=== PATIENT | female | born 1945 | race Caucasian/White ===

== ENCOUNTER 2019-09-27 14:41 | Emergency (ER) | payer MEDICARE, BC, SELFPAY ==
[2019-09-27] VITALS (8 sets, daily range): BP systolic 128–153; BP diastolic 81–99; PULSE 73–82; RESP 12–18; TEMP 35.9–36.2; O2SAT 97–100
--- NOTE | ~2019-09-27 | XR_ITS ---
EXAMINATION: XR chest 2V DATE: 09/27/2019 15:31 INDICATION: Weakness TECHNIQUE: PA and lateral views of the chest are obtained. COMPARISON: 01/22/2015 FINDINGS: The lungs are free of acute opacities. There is no pleural effusion or pneumothorax. The ca rdiomediastinal silhouette is normal. There is mild thoracic spondylosis. Surgical clips in the right upper quadrant are likely from prior cholecystectomy. IMPRESSION: 1. No acute cardiopulmonary abnormality. Reviewed, dictated and finalized at location A.
--- NOTE | ~2019-09-27 | CT_ITS ---
EXAMINATION: CTA chest PE abdomen pel DATE: 09/27/2019 19:24 INDICATION: Elevated d-dimer, weakness, abdominal pain TECHNIQUE: Computed tomography angiography (CTA) of the chest was performed with 100 mL Omnipaque-350 intravenous contrast timed to evaluate the pulmonary arteries. Subsequent postcontrast images of the abdomen and pelvis are obtained. Coronal maximum intensity projection 3D-reconstructions were create d by the technologist. The dose-length product (DLP) was 1420.75 mGy-cm. Automated exposure control a nd iterative reconstruction technique were employed. COMPARISON: None. FINDINGS: CTA CHEST: The pulmonary arteries are well-opacified. No pulmonary embolism is identified. There is c hronic elevation of the right hemidiaphragm. The lungs are free of acute opacities. There is no pleur al effusion or pneumothorax. No pathologically enlarged thoracic lymph nodes are identified. The hear t size is normal. Subendocardial fat deposition in the left ventricular apex is consistent with prior myocardial infarction. ABDOMEN/PELVIS CT: The gallbladder is surgically absent. There is mild enlargement of the common bile duct and central intrahepatic ducts which is likely due to post cholecystectomy state. The liver is diffusely low in attenuation when compared with the spleen, consistent with hepatic steatosis. The sp ash, pancreas, and adrenal glands are normal. Cysts of the right kidney measure up to 8 mm. There is a 5 mm hyperdense lesion of the left kidney (image 89). There is calcified atherosclerosis of the ao rta and many of the other arteries. No pathologically enlarged abdominal or pelvic lymph nodes are id entified. There is no free intraperitoneal gas or evidence of bowel obstruction. A moderate volume of colonic stool is present. There is moderate lumbar spondylosis at L4-5. A tiny fat-containing umbili toshia hernia is present. There is an 8 mm focus of hyperenhancement to the right of midline of unclear location possibly abutting the urethra (image 198). IMPRESSION: 1. No pulmonary embolism or acute cardiopulmonary abnormality. 2. No CT correlate for abdominal pain. 3. Indeterminate 5 mm right kidney mass, possibly hemorrhagic cyst. Recommend follow-up CT or MRI wit hout and with contrast in six months. 4. Tiny focus of hyperenhancement deep in the pelvis to the right midline of unclear origin, possibly involving the urethra. Nonemergent urologic follow-up is recommended. Reviewed, dictated and finalized at location A. IMPRESSION: 1. No pulmonary embolism or acute cardiopulmonary abnormality. 2. No CT correlate for abdominal pain. 3. Indeterminate 5 mm right kidney mass, possibly hemorrhagic cyst. Recommend f ollow-up CT or MRI without and with contrast in six months. 4. Tiny focus of hyperenhancement deep in the pelvis to the right midline of un clear origin, possibly involving the urethra. Nonemergent urologic follow-up is recommended.
--- NOTE | 2019-09-27 14:49 | ECG_ITS ---
Measurements Intervals [place] Rate: 80 P: 45 HI: 174 QRS: -11 QRSD: 104 T: 57 QT: 389 QTc: 451 Interpretive Statements SINUS RHYTHM LOW QRS VOLTAGE IN PRECORDIAL LEADS INCOMPLETE RIGHT BUNDLE BRANCH BLOCK BORDERLINE T WAVE ABNORMALITY- HIGH LATERAL LEADS BASELINE ARTIFACT- I, II, III, AVR, AVL, AVF BORDERLINE ECG Electronically Signed On 09-27-2019 16:53:01 CDT by Dipesh العراقي D.O.
[2019-09-27 15:01] LABS: Basophils Absolute Auto 0.1 K/mm3 (0.0-0.1); Basophils Percent Auto 0.5 % (0.2-1.2); Eosinophils Absolute Auto 0.2 K/mm3 (0-0.3); Eosinophils Percent Auto 1.6 % (0-4.4); Hematocrit 45.8 % (37.0-47.0); Hemoglobin 15.1 g/dL (12.0-15.0); Immature Granulocyte Absolute 0.05 K/mm3 (0.00-0.031); Immature Granulocyte Percent A 0.5 % (0-0.5); Lymphocytes Absolute Auto 2.27 K/mm3 (0.9-3.2); Lymphocytes Percent Auto 20.8 % (18.3-44.2); Mean Corpuscular Hemoglobin 29.8 pg (26-34); Mean Corpuscular Volume 90.5 fl (80-100); Mean Platelet Volume 10.9 fl (7.4-10.4); Monocytes Absolute Auto 0.6 K/mm3 (0.1-0.6); Monocytes Percent Auto 5.1 % (2.6-8.5); Neutrophils Absolute Auto 7.8 K/mm3 (1.3-6.7); Neutrophils Percent Auto 71.5 % (45.5-73.1); Platelet Count Result 276 k/mm3 (150-375); Red Blood Count 5.06 M/mm3 (4.2-5.4); Red Cell Distribution Width 13.5 % (11.5-14.5); White Blood Count 10.9 K/mm3 (4.5-10.0)
[2019-09-27 15:14] LABS: Alanine Aminotransferase 24 U/L (4-35); Albumin Level 4.5 g/dL (3.5-5.1); Alkaline Phosphatase 98 U/L (38-126); Aspartate Amino Transferase 27 U/L (14-36); Bilirubin,Total 0.9 mg/dL (0.2-1.3); Blood Urea Nitrogen 21 mg/dL (7-17); Calcium 9.8 mg/dL (8.4-10.2); Carbon Dioxide 23 mmol/L (22-30); Chloride 103 mmol/L (98-107); Estimated CRCL calculation 41 ml/min; Estimated Glomerular Filt Rate 40; Glucose 311 mg/dL (65-105); Potassium 4.3 mmol/L (3.4-5.0); Sodium 135 mmol/L (137-145)
[2019-09-27 15:21] LABS: Add Urine Microscopic? YES; Appearance Urine Cloudy (Clear); Bacteria Urine Trace /hpf; Bilirubin Urine Negative (Negative); Blood Urine Negative (Negative); Color Urine Yellow (Yellow); Glucose Urine UA 2+ mg/dL (Negative); Ketones Urine Negative (Negative); Leukocyte Esterase Ur 3+ LEU/UL (Negative); Mucus Urine Rare /lpf; Nitrate Urine Negative (Negative); Protein Urine 1+ mg/dL (Negative); Specific Grav Ur 1.029 (1.001-1.035); Squamous Epithelial Cell Urine Many /hpf (Few); WBC Urine 21-30 /hpf
--- NOTE | 2019-09-27 17:15 | ED.WEAKNESS ---
HPI - Weakness General Chief complaint: Weakness Stated complaint: PCP requests heart check, Weakness Time Seen by Provider: 09/27/19 16:48 Source: patient Mode of arrival: ambulatory Limitations: no limitations History of Present Illness HPI Narrative: This patient is a 74 year old female who presents for evaluation of episode of weakness . She states this morning while she was in shower she had an episode in which she felt like she was going to pass out. She states she has felt wobbly since then although she able to walk without assistance. She denies chest pain, palpitations, sob, nausea, vomiting or abdominal pain during the episode. She denies focal weakness or numbness. She states she had an appointment with a neurologist regarding her migraines and they told her to come to ER to get heart check out. She states she is not sure why they were worried about heart because she had no symptoms related to heart. She states he did not see any neurologist abnormalities either. Related Data Home Medications Medication Instructions Recorded Confirmed bisoprolol-hydrochlorothiazide tablet 09/27/19 cyanocobalamin (vitamin B-12) 09/27/19 divalproex PO 09/27/19 ergocalciferol (vitamin D2) 09/27/19 glimepiride mg 09/27/19 insulin syringe-needle U-100 [BD 09/27/19 09/27/19 Insulin Syringe] semaglutide [Ozempic] mg SUBCUT 09/27/19 Allergies Allergy/AdvReac Type Severity Reaction Status Date / Time Sulfa (Sulfonamide Allergy Unknown Hives / Verified 09/27/19 16:45 Antibiotics) Red Face Review of Systems Review of Systems: All systems reviewed & are unremarkable except as noted in HPI and below Constitutional: Constitutional: Denies chills, Denies fever(s) and Reports weakness Eyes: Eyes: Reports no additional eye complaints ENT: Denies sore throat Cardiovascular: Cardiovascular: Denies chest pain, Denies rapid heart rate, Denies radiating jaw, neck or arm pain and Denies slow heart rate Respiratory: Respiratory: Denies cough, Reports dyspnea and Denies wheezing Gastrointestinal: Gastrointestinal: Denies abdominal pain, Denies diarrhea, Denies nausea and Denies vomiting Genitourinary: Genitourinary: Reports dysuria Neurologic: Denies syncope, Reports headache(s) (history of migraine), Denies focal weakness and Denies numbness PMFSH Past Medical History Medical History (Updated 09/27/19 @ 20:06 by Lorena Lee MD) Diabetes mellitus Hypertension Surgical History Surgical History (Updated 09/27/19 @ 17:16 by Lorena Lee MD) Hx of cholecystectomy Social History Social History (Updated 09/27/19 @ 17:17 by Lorena Lee MD) Smoking status: Never smoker Alcohol intake: never Substance use: never Exam Narrative: Exam Narrative: GENERAL: Well-appearing, well-nourished, and in no acute distress. HEAD: Normocephalic, atraumatic EYES: PERRLA and EOMI, conjunctiva clear without discharge EARS: TM's clear bilaterally without erythema or dullness NOSE: Nares clear, no rhinorrhea or epistaxis THROAT:Mucous membranes moist, Oropharynx normal without erythema, exudate, peritonsillar swelling or fluctuance NECK: Supple, without lymphadenopathy or mass RESPIRATORY: No respiratory distress, Airway patent, Respirations non-labored, Clear to auscultation without rales, rhonchi or wheeze HEART: Regular rate and rhythm. No murmur heard. Normal peripheral pulses. ABDOMEN: Soft, RLQ, nondistended, normal active bowel sounds. No masses. No rebound or guarding, No organomegaly. EXTREMITIES: No edema, normal strength with full range of motion. SKIN: Warm, dry, normal color without rash NEURO: Alert and oriented x3. CN 2-12 grossly intact. No focal deficits. PSYCH: Normal mood and affect. Course Reevaluation(s) Reevaluation #1: PAtient states she feels better. I discussed CT and she will need to follow up with PCP. She understands she will be treated for UTI. Date:
[2019-09-27 17:25] LABS: Prothrombin Time 12.5 Seconds (11.1-14.7)
[2019-09-27 17:28] LABS: D Dimer 0.72 ug/mL (<0.48)
[2019-09-27 17:43] LABS: Troponin I < 0.012 ng/mL (0.000-0.034)
[2019-09-27] MEDS: IBUPROFEN 600 MG TABLET PO (20:02)
== END 2019-09-27 20:15 | disposition home or self-care (01) ==
PROVIDERS: Emergency Medicine; Emergency Provider General Practice; PCP Internal Medicine
DX: R55 Syncope and collapse (principal); N39.0 Urinary tract infection, site not specified; I45.10 Unspecified right bundle-branch block; E11.9 Type 2 diabetes mellitus without complications; I10 Essential (primary) hypertension; Z79.4 Long term (current) use of insulin
CPT/HCPCS: 36415; 71046; 71275; 74177; 80053; 81001; 84484; 85025; 85380; 85610; 87086; 93005; 99284; A9270; Q9967

== ENCOUNTER 2019-10-07 07:36 | Outpatient (CLI) | payer MEDICARE, BC, SELFPAY ==
--- NOTE | ~2019-10-07 | XR_ITS ---
EXAMINATION: XR knee LT 2V DATE: 10/07/2019 08:06 INDICATION: Multiple joint pain. TECHNIQUE: 2 views of left knee were obtained. COMPARISON: Left knee radiographs 12/23/2004 FINDINGS: Bone alignment is normal. No fracture. There is mild tricompartmental osteoarthritis. No kn ee joint effusion. IMPRESSION: 1. Mild left knee osteoarthritis. Reviewed, dictated and finalized at location A.
--- NOTE | ~2019-10-07 | MR_ITS ---
EXAMINATION: MR brain/brain stem wo con DATE: 10/07/2019 10:33 INDICATION: Headache. TECHNIQUE: Magnetic resonance imaging (MRI) of the brain and brainstem was performed without intraven ous contrast. Sequences included sagittal and axial T1-weighted FSE, axial diffusion-weighted FS EPI, axial T2*-weighted GRE, axial T2-weighted FLAIR Propeller, and axial T2-weighted Propeller. Apparent diffusion coefficient (ADC) maps were created. COMPARISON: None. FINDINGS: There are scattered areas of nonspecific increased T2-weighted signal intensity in the cere bral white matter, which is within normal limits for the patient's age. There is no intracranial hemo rrhage, acute infarction, or abnormal intracranial mass lesion. The ventricles are normal in size. Th e paranasal sinuses are clear. The orbits are normal. The mastoid air cells are normal. IMPRESSION: 1. Normal brain. Reviewed, dictated and finalized at location A. IMPRESSION: 1. Normal brain.
--- NOTE | ~2019-10-07 | MR_ITS ---
EXAMINATION: MRA brain wo con DATE: 10/07/2019 10:32 INDICATION: Headache. TECHNIQUE: Magnetic resonance angiography (MRA) of the brain was performed without intravenous contra st with T1-weighted SPGR by the 3D [id number] technique. Maximum intensity projection 3D-reconstr uctions were obtained. COMPARISON: None. FINDINGS: The vertebral arteries are codominant. There is no significant stenosis of basilar artery or the post erior cerebral arteries. There is no significant stenosis of the intracranial internal carotid arteri es or anterior or middle cerebral arteries. Anterior communicating artery is normal. The posterior co mmunicating arteries are normal. There is no aneurysm. IMPRESSION: 1. Normal head MRA. Reviewed, dictated and finalized at location A. IMPRESSION: 1. Normal head MRA.
--- NOTE | ~2019-10-07 | XR_ITS ---
EXAMINATION: XR hip LT min 2V DATE: 10/07/2019 08:06 INDICATION: Multiple joint pain. TECHNIQUE: 2 views of left hip were obtained. COMPARISON: Left hip radiographs 10/23/2005 FINDINGS: Bone alignment is normal. No fracture. There is mild left hip osteoarthritis. IMPRESSION: 1. Mild left hip osteoarthritis. Reviewed, dictated and finalized at location A.
--- NOTE | ~2019-10-07 | XR_ITS ---
EXAMINATION: XR knee RT 2V DATE: 10/07/2019 08:06 INDICATION: Multiple joint pain. TECHNIQUE: 2 views of right knee were obtained. COMPARISON: Right knee radiographs 01/22/2005 FINDINGS: Bone alignment is normal. No fracture. There is mild osteoarthritis of medial compartment a nd moderate osteoarthritis of lateral and patellofemoral compartments. There is chondrocalcinosis inv olving lateral meniscus. No knee joint effusion. IMPRESSION: 1. Moderate right knee osteoarthritis. Reviewed, dictated and finalized at location A.
--- NOTE | ~2019-10-07 | XR_ITS ---
EXAMINATION: XR hip RT min 2V DATE: 10/07/2019 08:06 INDICATION: Multiple joint pain. TECHNIQUE: 2 views of right hip were obtained. COMPARISON: Right hip radiographs 10/23/2005 FINDINGS: Bone alignment is normal. No fracture. There is mild right hip osteoarthritis. IMPRESSION: 1. Mild right hip osteoarthritis. Reviewed, dictated and finalized at location A.
--- NOTE | ~2019-10-07 | MR_ITS ---
EXAMINATION: MR cervical spine wo con DATE: 10/07/2019 10:32 INDICATION: Neck pain. TECHNIQUE: Magnetic resonance imaging (MRI) of the cervical spine was performed without intravenous c ontrast. Sequences included sagittal T2-weighted FSE, sagittal T2-weighted FS FSE, sagittal T1-weight ed FSE, axial MERGE, and axial T2-weighted FSE. COMPARISON: None FINDINGS: There is 2 mm anterolisthesis of C4 on C5, C5 on C6, and C6 on C7. Vertebral body heights a re normal. There is mildly decreased disc height at C5-C6. The spinal cord signal intensity is normal . The following disc levels are specifically discussed: C2-C3: There is a central protrusion. There is no uncovertebral joint osteoarthritis. There is severe bilateral facet joint osteoarthritis. There is mild left neural foraminal stenosis. There is no cent ral canal stenosis. C3-C4: The disc is bulging. There is mild bilateral uncovertebral joint osteoarthritis. There is sly re bilateral facet joint osteoarthritis. There is mild bilateral neural foraminal stenosis. There is mild central canal stenosis. C4-C5: The disc is bulging. There is mild left uncovertebral joint osteoarthritis. There is severe bi lateral facet joint osteoarthritis. There is mild left neural foraminal stenosis. There is mild centr al canal stenosis. C5-C6: The disc is bulging. There is mild right and moderate left uncovertebral joint osteoarthritis. There is severe bilateral facet joint osteoarthritis. There is mild bilateral neural foraminal steno sis. There is mild central canal stenosis. C6-C7: The disc is bulging. There is mild left uncovertebral joint osteoarthritis. There is severe bi lateral facet joint osteoarthritis. There is mild bilateral neural foraminal stenosis. There is mild central canal stenosis. C7-T1: There is a central protrusion. There is mild left uncovertebral joint osteoarthritis. There is severe right and moderate left facet joint osteoarthritis. There is mild bilateral neural foraminal stenosis. There is mild central canal stenosis. IMPRESSION: 1. Moderate cervical spondylosis. Reviewed, dictated and finalized at location A.
--- NOTE | ~2019-10-07 | MR_ITS ---
EXAMINATION: MR lumbar spine wo con DATE: 10/07/2019 10:32 INDICATION: Low back pain. TECHNIQUE: Magnetic resonance imaging (MRI) of the lumbar spine was performed without intravenous con trast. Sequences included sagittal T2-weighted FSE, sagittal T2-weighted FS FSE, sagittal T1-weighted FSE, and axial T2-weighted FSE. COMPARISON: None FINDINGS: There is 4 mm anterolisthesis of L4 on L5. Vertebral body heights are normal. There is mode rately decreased disc height at L4-L5. The distal spinal cord signal intensity is normal. The conus m edullaris is at L1. The following disc levels are specifically discussed: L1-L2: The disc does not extend beyond the endplate margin. There is severe right and moderate left f acet joint osteoarthritis. There is no neural foraminal stenosis. There is no central canal stenosis. L2-L3: The disc is mildly bulging. There is severe bilateral facet joint osteoarthritis. There is hyp ertrophy of the ligamentum flavum. There is mild bilateral neural foraminal stenosis. There is mild c entral canal stenosis. L3-L4: The disc is bulging. There is severe bilateral facet joint osteoarthritis. There is hypertroph y of the ligamentum flavum. There is mild bilateral neural foraminal stenosis. There is mild central canal stenosis. L4-L5: The disc is bulging and has an annular fissure. There is severe bilateral facet joint osteoart hritis. There is hypertrophy of the ligamentum flavum on the right. There is moderate bilateral neura l foraminal stenosis. There is moderate central canal stenosis. L5-S1: The disc is bulging and has an annular fissure. There is severe bilateral facet joint osteoart hritis. There is mild bilateral neural foraminal stenosis. There is mild central canal stenosis. IMPRESSION: 1. Moderate lumbar spondylosis. Reviewed, dictated and finalized at location A.
== END 2019-10-07 07:37 | disposition home or self-care (01) ==
PROVIDERS: PCP Internal Medicine; Visit Provider Internal Medicine Rheumatology
DX: R51 Headache (principal); M47.896 Other spondylosis, lumbar region; M47.892 Other spondylosis, cervical region; R55 Syncope and collapse
CPT/HCPCS: 70544; 70551; 72141; 72148; 73502; 73560

== ENCOUNTER 2020-01-20 03:47 | Outpatient (CLI) | payer MEDICARE, BC, SELFPAY ==
[2020-01-20 17:45] LABS: SARS-CoV-2 RNA PCR Negative
== END 2020-01-20 03:48 | disposition home or self-care (01) ==
LOC: ANHCOVIDDT 03:48
PROVIDERS: PCP Internal Medicine; Visit Provider Internal Medicine Critical Care Medicine
DX: Z01.812 Encounter for preprocedural laboratory examination (principal); Z20.828 Contact with and (suspected) exposure to other viral communicable diseases
CPT/HCPCS: 87635; C9803; U0003

== ENCOUNTER 2020-01-23 08:04 | Outpatient (CLI) | payer MEDICARE, BC, SELFPAY ==
--- NOTE | 2020-02-22 11:03 | WPDSLEEPSTUD ---
Sleep Study Date of Study: 01/23/20 Ordering Provider: Billy Thacker MD Interpreting Physician: Kari Dougherty MD Sleep Study Type: Polysomnogram Height: 1.63 m Weight: 97.522 kg Body Mass Index: 36.8 [place]: 17 Reason for Sleep Study Hypersomnolence Sleep History Sinai Baker is a 75 year-old female with a history of poor sleep. She is tired and fatigued every day, frequently has morning headaches and heartburn at night. She wakes several times at night to urinate. There is a family history of sleep disorders, a sister has sleep apnea. The patient had a sleep test 15 years ago. She frequently awakens at night with heartburn, belching or coughing. She does not know if she snores. She rarely awakens from sleep feeling short of breath. She frequently has trouble sleeping with a cold. She rarely wakes up gasping for breath at night. She rarely has breathing problems at night reported to her by others. She frequently sweats excessively at night. She rarely notices her heart pounding or beating irregularly at night. She frequently falls asleep during the day, frequently involuntarily but never while driving. She does not fall asleep during physical effort. She does not have loss of muscle tone with strong emotion. 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 She does not feel paralyzed on waking or falling asleep. She rarely has vivid dreamlike scenes upon awakening or falling asleep. She is never afraid to go to sleep. She rarely has nightmares and rarely remembers her dreams. She occasionally has racing thoughts. She rarely feels sad or depressed. She rarely has anxiety. She frequently has muscular tension. She does not notice part of her body jerking. She does not know if she kicks at night. She occasionally has [place] aching feelings in her legs. She occasionally has morning jaw pain she rarely grinds her teeth during sleep. She constantly is bothered by pain during the day, frequently is awakened by pain at night. She occasionally wakes up feeling stiff in the morning. She rarely wakes up with sore or achy muscles. She occasionally wakes up with pain in the neck and spine. She frequently has fatigue. SHe takes antacids regularly. Normal bedtime is 9:00 p.m., sometimes falling asleep more quickly than other times. She typically wakes at night 5 times. While awake, she will go to the bathroom, and she walks around to relieve leg cramps. She stays awake for 5 - 10 minutes. She wakes in the morning at 7:00 a.m.. She estimates 8-9 hours of sleep at night. On the weekends, she goes to bed later, between 10:11 p.m. and wakes later, between 7 and 9:00 a.m.. She sometimes takes naps. A short 15 minute nap is refreshing. She is usually drowsy in the morning for 1 hour or longer. She feels better in the evening compared to earlier in the day. Habits: Never smoked tobacco. Caffeine 2 cups a day. No alcohol. No recreational drugs. [facility] Past Medical History Medical History (Updated 02/22/20 @ 11:31 by Kari Dougherty MD) Common migraine Diabetes mellitus Gastroesophageal reflux Hypertension Polyarthralgia Restless leg syndrome Surgical History Surgical History (Updated 02/22/20 @ 11:30 by Kari Dougherty MD) History of back surgery History of hysterectomy History of knee surgery Hx of cholecystectomy Family History Family History (Updated 02/22/20 @ 11:44 by Kari Dougherty MD) Sibling Family history of sleep apnea Other FHx: migraine headaches Family history of Alzheimer's disease Heart disease Hypertension Social History Social History Smoking status: Never smoker Alcohol intake: never Substance use: never Medications Home Medications Medication Instructions Recorded Confirmed Type bisoprolol-hydrochlorothiazide tablet 09/27/19 History cephalex
[2020-02-22 11:11] VITALS: BMI 36.8
== END 2020-01-23 08:05 | disposition home or self-care (01) ==
LOC: ANHCSM 08:13
PROVIDERS: PCP Internal Medicine; Visit Provider Internal Medicine Rheumatology
DX: G47.33 Obstructive sleep apnea (adult) (pediatric) (principal)
CPT/HCPCS: 95810

== ENCOUNTER 2020-02-18 10:52 | Outpatient (CLI) | payer MEDICARE, BC, SELFPAY ==
--- NOTE | ~2020-02-18 | MR_ITS ---
EXAMINATION: MR knee RT wo con DATE: 02/18/2020 11:50 INDICATION: Right knee pain TECHNIQUE: Magnetic resonance imaging (MRI) of the right knee was performed without intravenous contr ast. Sequences included coronal PD-weighted FSE, coronal PD-weighted FS FSE, sagittal T2-weighted FS E, sagittal PD-weighted FS FSE and axial PD weighted fat saturated FSE. COMPARISON: None. FINDINGS: Medial compartment: Longitudinal horizontal tear extending to the intra-articular surface near the free edge of the poste rior horn and posterior body of the medial meniscus. There is a region of deep chondral fissuring wit hout degenerative subchondral changes at the anterior weightbearing medial femoral condyle. Partial t hickness cartilage loss with mild chondral surface regularity along the posterior weightbearing media l femoral condyle. Moderate large marginal osteophytes along the medial femoral condyle and tiny carmen inal osteophytes along the medial tibial plateau. Lateral compartment: There is lateral extrusion of the lateral meniscal body which appears thickened with prominent diffus e amorphous increased signal suggesting severe degenerative tearing. There is extensive full and near full-thickness cartilage loss involving the majority the lateral tibial plateau and weightbearing la teral femoral condyle. There is remodeling of the articular surface of the lateral tibial plateau wit h increasing concavity to the articular cortex. There is additional cortical irregularity and mild arnold bcortical edema along the anterior to central weightbearing medial femoral condyle. Large marginal os teophytes are present along both the lateral tibial plateau and lateral femoral condyle. Patellofemoral compartment: Full thickness cartilage loss with underlying cortical irregularity and a few foci of subchondral garry ma along the lateral and inferior aspects of the lateral trochlea. Lesser degree of chondral ulcerati on with deep fissuring at the medial trochlea and trochlear groove. Full/near full-thickness cartilag e loss along the medial side of the lateral patellar facet and apical ridge without degenerative subc hondral changes. Partial-thickness cartilage loss and deep fissuring at the medial facet. Moderate-si zed patellar and trochlear osteophytes are present. Ligaments and tendons: The anterior cruciate ligament appears to remain grossly intact following a normal angle relative to bone stock line. There are however a couple small intrasubstance ganglion cysts within the cephalad a spect of the ligament which could be due to internal mucoid degeneration or partial tearing. There is also thickening and increased intrasubstance signal at the posterior cruciate ligament also consiste nt with partial tear. The medial collateral ligament and fibular collateral ligament complex are norm al. Mild tendinopathy without discrete tear of the distal quadriceps and distal patellar tendons. The visualized medial and lateral hamstring tendons as well as the iliotibial band are normal. Fluid: Small right knee joint effusion. No loose osteochondral bodies identified. Osseous/other: There is mild genu valgus resulting from the lateral joint space narrowing and remodeling of the late ral tibial plateau. No fracture or pathologic marrow replacing process. IMPRESSION: 1. Medial and lateral meniscal tears. 2. 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 3. Partial tear of the posterior cruciate ligament and mucoid degeneration is additional partial tear of the anterior cruciate ligament. Correlate with physical exam to assess for degree of functional i ntegrity of the cruciate ligaments. 4. Mild tendinopathy without discrete tear at the dis
== END 2020-02-18 10:53 | disposition home or self-care (01) ==
LOC: ANHIMG 10:55
PROVIDERS: PCP Internal Medicine; Visit Provider Internal Medicine Rheumatology
DX: S83.281A Other tear of lateral meniscus, current injury, right knee, initial encounter (principal); S83.241A Other tear of medial meniscus, current injury, right knee, initial encounter; X58.XXXA Exposure to other specified factors, initial encounter; M17.11 Unilateral primary osteoarthritis, right knee
CPT/HCPCS: 73721

== ENCOUNTER 2020-12-18 13:52 | Emergency (ER) | payer MEDICARE, BC, SELFPAY ==
[2020-12-18] VITALS (9 sets, daily range): BP systolic 127–153; BP diastolic 60–90; PULSE 73–78; RESP 18; TEMP 36.1; O2SAT 97–100
--- NOTE | ~2020-12-18 | XR_ITS ---
EXAMINATION: XR chest 2V EXAM DATE: 12/18/2020 14:45 INDICATION: Neck, jaw pain. History hypertension reflux diabetes. TECHNIQUE: Frontal and lateral projections of the chest obtained and reviewed. Comparison is made to prior examination from 09/27/2019. FINDINGS: There are cholecystectomy clips. The lungs are clear. There are no pleural effusions. Th e cardiomediastinal silhouette is within normal limits. There is no pneumothorax suspected. The bon es and soft tissues are unremarkable. IMPRESSION: No acute cardiopulmonary findings. Reviewed, dictated and finalized at location B.
--- NOTE | ~2020-12-18 | CT_ITS ---
EXAMINATION: CTA BRAIN/CAROTID DATE: 12/18/2020 18:44 INDICATION: Stroke TECHNIQUE: Computed tomographic angiography (CTA) of the head and neck was performed with 100 mL Omni paque-350 intravenous contrast. Multiplanar reconstructions and maximum intensity projection 3D-recon structions of the carotid arteries and of the intracranial arteries were created by the technologist on a separate workstation. Precontrast CT of the head was also obtained. Automated exposure control and iterative reconstruction technique were employed.The dose-length product was 1667.88 mGy-cm. COMPARISON: Brain MR and MR angiogram dated 10/07/2019 FINDINGS: Carotid arteries: There is a small amount of atherosclerotic calcification with 0% stenosis of the right carotid bulb r elative to normal distal artery lumen diameter (NASCET criteria). There is no atherosclerotic plaque with 0% stenosis of the left carotid bulb relative to normal distal artery lumen diameter. Thoracic a tash and the origin of the great vessels are unremarkable aside from a minimal amount of scattered at herosclerotic plaque without significant stenosis. The bilateral cervical vertebral arteries are codo minant, mildly tortuous proximally with no stenosis. Likely benign 5 mm low-attenuation right thyroid nodule. Cervical soft tissues are otherwise unremarkable. Small pneumatocele in the left upper lobe. Head: No acute intracranial hemorrhage, acute infarction or abnormal extra axial fluid collection. Symmetri c prominence of the sulci consistent with mild age-appropriate diffuse cerebral volume loss. Ventric les are normal and symmetric. No mass/mass effect. The orbits, paranasal sinuses and mastoid air cell s are normal. Intracranial arteries Mild atherosclerotic plaque without significant stenosis at the bilateral carotid siphons. There is n o hemodynamically significant stenosis in the vertebral, basilar and internal carotid arteries. Verte bral arteries are codominant. There are no aneurysms identified. Both A1 and P1 segments are patent. There are also patent anterior communicating and bilateral posterior communicating arteries. Cerebra l arterial arborization appears symmetric. No abnormally enhancing brain lesions. IMPRESSION: 1. 0% stenosis of the right and left carotid bulbs relative to normal distal artery lumen diameter (N ASCET criteria). 2. Mild age-appropriate diffuse cerebral volume loss. No acute intracranial process. 3. Unremarkable cerebral angiogram with small amount of nonhemodynamically significant plaque at the bilateral carotid siphons. Reviewed, dictated and finalized at location A. IMPRESSION: 1. 0% stenosis of the right and left carotid bulbs relative to normal distal ar tory lumen diameter (NASCET criteria). 2. Mild age-appropriate diffuse cerebral volume loss. No acute intracranial pro cess. 3. Unremarkable cerebral angiogram with small amount of nonhemodynamically sign ificant plaque at the bilateral carotid siphons.
--- NOTE | 2020-12-18 14:10 | ECG_ITS ---
Measurements Intervals [place] Rate: 76 P: 52 DC: 169 QRS: -8 QRSD: 107 T: 27 QT: 402 QTc: 454 Interpretive Statements SINUS RHYTHM INCOMPLETE RIGHT BUNDLE BRANCH BLOCK BORDERLINE T WAVE ABNORMALITY- ANTEROLAT/INF LEADS BORDERLINE ECG Electronically Signed On 12-18-2020 14:50:50 CDT by Dipesh العراقي D.O.
--- NOTE | 2020-12-18 14:28 | PC.NURSE ---
BLOOD SENT TO LAB
[2020-12-18 14:33] LABS: Basophils Percent Auto 0.3 % (0.2-1.2); Eosinophils Absolute Auto 0.2 K/mm3 (0-0.3); Eosinophils Percent Auto 2.7 % (0-4.4); Hematocrit 37.6 % (37.0-47.0); Immature Granulocyte Absolute 0.02 K/mm3 (0.00-0.031); Immature Granulocyte Percent A 0.2 % (0-0.5); Lymphocytes Absolute Auto 3.47 K/mm3 (0.9-3.2); Lymphocytes Percent Auto 38.9 % (18.3-44.2); Mean Corpuscular HGB Conc 34.6 g/dl (32-36); Mean Corpuscular Hemoglobin 30.7 pg (26-34); Mean Corpuscular Volume 88.7 fl (80-100); Mean Platelet Volume 10.3 fl (7.4-10.4); Monocytes Absolute Auto 0.6 K/mm3 (0.1-0.6); Monocytes Percent Auto 6.7 % (2.6-8.5); Neutrophils Absolute Auto 4.6 K/mm3 (1.3-6.7); Neutrophils Percent Auto 51.2 % (45.5-73.1); Platelet Count Result 260 k/mm3 (150-375); Red Blood Count 4.24 M/mm3 (4.2-5.4); Red Cell Distribution Width 13.4 % (11.5-14.5); White Blood Count 8.9 K/mm3 (4.5-10.0)
[2020-12-18 14:42] LABS: INR 0.8; Prothrombin Time 11.4 Seconds (11.1-14.7)
[2020-12-18 14:43] LABS: Partial Thromboplastin Time 26.4 SECONDS (22.3-36.8)
[2020-12-18 14:46] LABS: Anion Gap 11 mmol/L (8-16); Blood Urea Nitrogen 15 mg/dL (7-17); Calcium 9.7 mg/dL (8.4-10.2); Carbon Dioxide 21 mmol/L (22-30); Chloride 107 mmol/L (98-107); Estimated CRCL calculation 48 ml/min; Estimated Glomerular Filt Rate 54; Glucose 143 mg/dL (65-110); Potassium 3.7 mmol/L (3.4-5.0); Sodium 139 mmol/L (137-145)
[2020-12-18 14:58] LABS: Troponin I < 0.012 ng/mL (0.000-0.034)
[2020-12-18 17:46] LABS: Troponin I < 0.012 ng/mL (0.000-0.034)
[2020-12-18] MEDS: diphenhydrAMINE HCl INJ 50 MG/ML VIAL 25 MG IV PUSH (18:02)
[2020-12-18] MEDS: METOCLOPRAMIDE HCL INJ 10 MG/2 ML VIAL IV PUSH (18:03)
[2020-12-18] MEDS: SODIUM CHLORIDE 0.9% IV 1,000 ML 999 ML IV CONT (18:03)
[2020-12-18] MEDS: KETOROLAC 15 MG/ML VIAL (*BKC) IV PUSH (18:32)
--- NOTE | 2020-12-18 19:15 | ED.GENADULT ---
HPI - General Adult General Chief complaint: Headache Stated complaint: Headache,L side of face and neck pain Time Seen by Provider: 12/18/20 17:32 History of Present Illness HPI narrative: Patient is a 75-year-old female presents the emergency department with chief complaint of headache. Patient reports that she has history of headaches but states today she felt pain going into her neck and also had some tingling the patient states that she has prior history of migraines and has some episodes of tingling but normally does not have the pain radiates down into her neck and reports that her lower extremities felt somewhat weak when this occurred Related Data Home Medications Medication Instructions Recorded Confirmed bisoprolol-hydrochlorothiazide tablet 09/27/19 cyanocobalamin (vitamin B-12) 09/27/19 divalproex PO 09/27/19 ergocalciferol (vitamin D2) 09/27/19 glimepiride mg 09/27/19 insulin syringe-needle U-100 [BD 09/27/19 09/27/19 Insulin Syringe] semaglutide [Ozempic] mg SUBCUT 09/27/19 Allergies Allergy/AdvReac Type Severity Reaction Status Date / Time Sulfa (Sulfonamide Allergy Unknown Hives / Verified 09/27/19 16:45 Antibiotics) Red Face Review of Systems Review of Systems: A 10 system review of systems was completed on the patient and is negative except for what is stated in the HPI. Nursing and ancillary documentation was reviewed. PMFSH Past Medical History Medical History Common migraine Diabetes mellitus Gastroesophageal reflux Hypertension Polyarthralgia Restless leg syndrome Surgical History Surgical History History of back surgery History of hysterectomy History of knee surgery Hx of cholecystectomy Family History Family History Sibling Family history of sleep apnea Other FHx: migraine headaches Family history of Alzheimer's disease Heart disease Hypertension Social History Social History Smoking status: Never smoker Alcohol intake: never Substance use: never Exam Narrative: GENERAL: Well-appearing, well-nourished, and in no acute distress. HEAD: Normocephalic, atraumatic. EYES: PERRLA and EOMI. ENT: Nares clear, no rhinorrhea or epistaxis. Mucous membranes moist. NECK: Supple. CHEST: Clear to auscultation. No respiratory distress. HEART: Regular rate and rhythm. No murmur heard. Normal peripheral pulses. ABDOMEN: Soft, nontender, nondistended, normal active bowel sounds. EXTREMITIES: Normal range of motion. No edema. SKIN: Warm, dry, no rash. NEURO: No focal deficits. Alert and oriented x3. PSYCH: Normal mood and affect. Course Course Emergency Course: Patient is feeling much better after a standard migraine treatment Due to the change in her pattern of headache CTA head neck was obtained which showed no evidence of acute abnormality Vital Signs Vital signs: Vital Signs Temperature 36.1 C L 12/18/20 14:05 Pulse Rate 73 12/18/20 14:05 Respiratory Rate 18 12/18/20 14:05 Blood Pressure 153/90 H 12/18/20 14:05 Pulse Oximetry 98 12/18/20 14:05 Temperature 36.1 C L 12/18/20 14:05 Pulse Rate 78 12/18/20 18:34 Respiratory Rate 18 12/18/20 18:34 Blood Pressure 138/60 12/18/20 18:34 Pulse Oximetry 99 12/18/20 18:34 Medical Decision Making Vital Signs Vital Signs: Vital Signs Temperature 36.1 C L 12/18/20 14:05 Pulse Rate 73 12/18/20 14:05 Respiratory Rate 18 12/18/20 14:05 Blood Pressure 153/90 H 12/18/20 14:05 Pulse Oximetry 98 12/18/20 14:05 Temperature 36.1 C L 12/18/20 14:05 Pulse Rate 78 12/18/20 18:34 Respiratory Rate 18 12/18/20 18:34 Blood Pressure 138/60 12/18/20 18:34 Pulse Oximetry 99 12/18/20 18:34 Lab Data Res
== END 2020-12-18 19:52 | disposition home or self-care (01) ==
PROVIDERS: Emergency Medicine; Emergency Provider Emergency Medicine; PCP Internal Medicine
DX: G43.909 Migraine, unspecified, not intractable, without status migrainosus (principal); E11.9 Type 2 diabetes mellitus without complications; Z79.4 Long term (current) use of insulin; K21.9 Gastro-esophageal reflux disease without esophagitis; I10 Essential (primary) hypertension
CPT/HCPCS: 36415; 70496; 70498; 71046; 80048; 84484; 85025; 85610; 85730; 93005; 96361; 96374; 96375; 99284; J1200; J1885; J2765; J7030; Q9967

== ENCOUNTER 2021-03-08 16:50 | Inpatient (IN) | payer MEDICARE, BC, SELFPAY ==
--- NOTE | ~2021-03-08 | XR_ITS ---
EXAMINATION: XR chest 1V portable INDICATION: Shortness of breath TECHNIQUE: Portable AP chest at 0652 hours COMPARISON: 03/09/2021 FINDINGS: Diffuse interstitial and airspace opacities persist with slight improvement. There is uncha nged elevation of the right hemidiaphragm. No pleural effusion or pneumothorax is identified. The hea rt size is normal. Surgical clips in the right upper quadrant are likely from prior cholecystectomy. IMPRESSION: 1. Diffuse lung disease with slight improvement, consistent with COVID 19 pneumonia. Reviewed, dictated and finalized at location A. EMENT COORDINATOR IMPRESSION: 1. Diffuse lung disease with slight improvement, consistent with COVID 19 pneum onia.
--- NOTE | ~2021-03-08 | US_ITS ---
EXAMINATION: US art doppler w press LE BI DATE: 03/15/2021 09:40 INDICATION: Peripheral arterial disease. TECHNIQUE: Segmental pressures and plethysmographic and Doppler waveforms of the brachial and lower e xtremity arteries were obtained. COMPARISON: CT abdomen and pelvis 03/14/2021, 09/27/2019 FINDINGS: Right and left brachial artery pressures of 135 mm Hg and 125 mm Hg, respectively, are concordant (no rmal difference <= 30 mmHg). The right lower limb pressures were not measured. The right ankle-brachial index (CATA) was not measur ed (normal >= 0.9-1.0). The right great toe-brachial index (TBI) was not measured (normal >= 0.65). A rterial Doppler waveforms are biphasic in common femoral artery and superficial femoral artery and no isy in popliteal artery. There is no detectable arterial flow in posterior tibial artery or dorsalis pedis or the great toe. The left ACTA is 0.96. The left TBI is 0.41. Arterial Doppler waveforms are biphasic from common femor al artery to the ankle. IMPRESSION: 1. No detectable arterial flow in right posterior tibial artery, dorsalis pedis, or the great toe. 2. Mildly decreased left CATA and decreased left TBI, consistent with arterial occlusive disease. Reviewed, dictated and finalized at location A. CTOR SEMICONDUCTOR IMPRESSION: 1. No detectable arterial flow in right posterior tibial artery, dorsalis pedis , or the great toe. 2. Mildly decreased left CATA and decreased left TBI, consistent with arterial o cclusive disease.
--- NOTE | ~2021-03-08 | XR_ITS ---
EXAMINATION: XR chest 1V portable INDICATION: Hypoxia TECHNIQUE: Portable AP chest at 0 to 40 hours COMPARISON: 03/13/2021 FINDINGS: Pneumomediastinum has developed since the comparison examination. There is also gas trackin g into the neck. Diffuse interstitial and airspace opacities persist without significant change. Ther e is no pleural effusion or pneumothorax. The heart size is normal. Surgical clips in the right upper quadrant are likely from prior cholecystectomy. IMPRESSION: 1. Interval development of pneumomediastinum and gas tracking into the right neck. 2. Stable diffuse lung disease, consistent with COVID 19 pneumonia. Reviewed, dictated and finalized at location A. IFFS DETECTIVE IMPRESSION: 1. Interval development of pneumomediastinum and gas tracking into the right ne ck. 2. Stable diffuse lung disease, consistent with COVID 19 pneumonia.
--- NOTE | ~2021-03-08 | XR_ITS ---
EXAMINATION: XR chest 1V portable EXAM DATE: 03/09/2021 15:52 INDICATION: Worsened hypoxemia . COVID pneumonia. TECHNIQUE: Portable AP frontal chest x-ray was obtained. Comparison is made to prior examination from 03/08/2021. FINDINGS: Moderate amount of bilateral airspace disease, with ill-defined but with more discrete line ar regions of atelectasis. Appearance is consistent with acute to subacute COVID pneumonia. No signif icant change compared to yesterday. No pneumothorax or pleural effusion. Cardiomediastinal silhouette is normal. IMPRESSION: 1. Moderate bilateral pneumonia. Reviewed, dictated and finalized at location A. O STATION OPERATOR
--- NOTE | ~2021-03-08 | XR_ITS ---
EXAMINATION: XR chest 1V portable DATE: 03/08/2021 17:11 INDICATION: Cough and shortness of breath. COVID positive. TECHNIQUE: frontal view of the chest was obtained. COMPARISON: Chest radiograph dated 12/18/2020 FINDINGS: Lung volumes are decreased. There is patchy and bandlike airspace opacities throughout both lungs rel atively sparing the upper lung zones. No pleural effusion or pneumothorax. The cardiomediastinal silh ouette is normal. Cholecystectomy clips in right upper quadrant. IMPRESSION: 1. Bilateral lung disease with appearance suspicious for COVID pneumonia. Differential includes less likely atelectasis or pulmonary edema. Reviewed, dictated and finalized at location B. PHONE TECHNICIAN IMPRESSION: 1. Bilateral lung disease with appearance suspicious for COVID pneumonia. Diffe rential includes less likely atelectasis or pulmonary edema.
--- NOTE | ~2021-03-08 | XR_ITS ---
EXAMINATION: XR chest 1V portable INDICATION: Pneumomediastinum TECHNIQUE: Portable AP chest at 0614 hours COMPARISON: 03/14/2021 FINDINGS: Pneumomediastinum persists. There has been development of extensive subcutaneous gas of the chest wall and neck. The appearance of bilateral pneumothoraces is demonstrated to reflect gas of th e chest wall tracking into the intercostal space and involving the parietal pleura. Diffuse opacities persist throughout all lung zones without significant change. The heart size is normal. IMPRESSION: 1. Diffuse lung disease, consistent with pneumonia and pulmonary edema. Reviewed, dictated and finalized at location A. K UP WORKER
--- NOTE | ~2021-03-08 | XR_ITS ---
EXAMINATION: XR ankle RT min 3V INDICATION: Right ankle swelling TECHNIQUE: Four views of the right ankle are obtained. COMPARISON: None available FINDINGS: There is no fracture, dislocation, or subluxation. Lateral ankle soft tissue swelling is no alejandra. There is a plantar calcaneal enthesophyte. IMPRESSION: 1. Lateral ankle soft tissue swelling without underlying osseous abnormality identified. Reviewed, dictated and finalized at location A. R DRAGLINE OPERATOR IMPRESSION: 1. Lateral ankle soft tissue swelling without underlying osseous abnormality id entified.
--- NOTE | ~2021-03-08 | CT_ITS ---
EXAMINATION: CT chest abdomen pelvis wo con EXAM DATE: 03/14/2021 11:42 INDICATION: Shortness of breath with increasing white blood cell count. Pneumomediastinum. TECHNIQUE: Spiral CT of the chest, abdomen and pelvis was performed without contrast. Axial, umana l and sagittal images chest, abdomen and pelvis were reviewed. Coronal maximum intensity pixel image s of chest reviewed. The dose-length product (DLP) for this examination was 1368.55 mGy-cm. The exp osure was tailored according to patient size (auto mA exposure control), and iterative reconstruction (ASIR) was used as additional dose reduction technique. Comparison is made to prior examination from 03/08/2021. FINDINGS: CHEST: There is development of extensive pneumomediastinum, gas tracking along the inner and outer s urfaces of the thoracic wall giving the appearance of small pneumothoraces, but this gas is likely on the outer surface of both pleural reflections, no pneumothorax is suspected. There is progression i n diffuse groundglass airspace disease consistent with COVID pneumonia. There are no pleural or peric ardial effusions. Tracheobronchial tree is patent. There is no mediastinal, hilar or axillary lym phadenopathy. Heart normal in size. There is mild to moderate coronary arterial calcification, ar terial sclerosis. ABDOMEN PELVIS: The liver, spleen, adrenal glands and pancreas are unremarkable. There are cholecyst ectomy clips. Punctate right calyceal stone. No ureteral stones. Calcifications in the pelvis are be lieved to be phleboliths. The uterus is not identified and has likely been surgically resected. Th e bladder is collapsed with Enciso catheter balloon anchor inside. There is no retroperitoneal or pel kanu lymphadenopathy. There is moderate scattered arteriosclerotic disease. The appendix is normal. The stomach and small bowel are unremarkable. There is expected amount of c olonic stool. No free intraperitoneal gas. There are no osteoblastic or osteolytic lesions identi fied. IMPRESSION: 1. Progression of diffuse COVID pneumonia. 2. Development of extensive pneumomediastinum, thoracic wall, neck gas. 3. No acute intra-abdominal findings. Reviewed, dictated and finalized at location B. ENIENCE STORE MANAGER
--- NOTE | ~2021-03-08 | XR_ITS ---
EXAMINATION: XR chest 1V portable EXAM DATE: 03/15/2021 08:46 INDICATION: Possible pneumothorax. TECHNIQUE: Portable AP frontal chest x-ray was obtained. Comparison is made to prior examination from earlier same date. Correlation was made with chest CT. FINDINGS: There is extensive pneumomediastinum and subcutaneous gas. A right pleural reflection is id entified, but this is likely from gas along the thoracic wall, correlating with yesterday's CT scan. Both lungs appear well-inflated with persistent diffuse COVID pneumonia. Cardiomediastinal silhouette is normal. Thoracic dextrocurvature. IMPRESSION: 1. Extensive pneumomediastinum, thoracic wall gas. 2. Diffuse COVID pneumonia. Reviewed, dictated and finalized at location D. ENT SERVICES ASSISTANT
--- NOTE | ~2021-03-08 | CT_ITS ---
EXAMINATION: CTA chest PE protocol EXAM DATE: 03/08/2021 18:43 INDICATION: COVID positive, dyspnea. Weakness. TECHNIQUE: Spiral CTA of the chest (pulmonary arteries) was performed with 100 cc Omnipaque 350 intr avenous contrast injection. Images were acquired during the pulmonary arterial phase. Coronal maxi mum intensity projection 3D-reconstructions were created by the technologist on dedicated workstation . Axial, coronal and sagittal reformatted images were reviewed. The dose-length product (DLP) for t his examination was 336.11 mGy-cm. The exposure was tailored according to patient size (auto mA exp osure control), and iterative reconstruction (ASIR) was used as additional dose reduction technique. Comparison is made to prior examination from 09/27/2019. FINDINGS: Pulmonary arteries are well opacified and without intraluminal filling defects. No thora cic aortic dissection. There is diffuse bilateral airspace disease, groundglass opacities with inter spersed or confluent linear regions, appearance is consistent with acute to subacute stage COVID pneu monia. There are no pleural or pericardial effusions. Tracheobronchial tree is patent. There is no mediastinal, hilar or axillary lymphadenopathy. There is no pneumothorax. Heart normal in size . There is mild coronary arterial calcification, arterial sclerosis. Cholecystectomy clips. There is thoracic spondylosis without osteoblastic or osteolytic lesions identified. IMPRESSION: 1. Diffuse COVID pneumonia. 2. No pulmonary emboli. Reviewed, dictated and finalized at location A. MANUFACTURING SPECIALIST
[2021-03-08 16:52] VITALS: BP 134/73; PULSE 89; RESP 22; TEMP 36.9; O2SAT 89
[2021-03-08 16:58] VITALS: O2SAT 92
[2021-03-08 17:02] LABS: Glucose Point of Care 382 mg/dl (65-105)
[2021-03-08 17:29] LABS: Basophils Percent Auto 0.2 % (0.2-1.2); Hematocrit 39.9 % (37.0-47.0); Hemoglobin 13.4 g/dL (12.0-15.0); Immature Granulocyte Absolute 0.03 K/mm3 (0.00-0.031); Immature Granulocyte Percent A 0.5 % (0-0.5); Lymphocytes Percent Auto 20.2 % (18.3-44.2); Mean Corpuscular HGB Conc 33.6 g/dl (32-36); Mean Corpuscular Volume 89.5 fl (80-100); Mean Platelet Volume 11.6 fl (7.4-10.4); Monocytes Absolute Auto 0.6 K/mm3 (0.1-0.6); Monocytes Percent Auto 10.1 % (2.6-8.5); Neutrophils Absolute Auto 4.1 K/mm3 (1.3-6.7); Platelet Count Result 141 k/mm3 (150-375); Red Blood Count 4.46 M/mm3 (4.2-5.4); Red Cell Distribution Width 13.4 % (11.5-14.5); White Blood Count 5.9 K/mm3 (4.5-10.0)
[2021-03-08 17:39] LABS: INR 0.9; Lactic Acid Reflex 2.1 mmol/L (0.7-2.1)
[2021-03-08 17:40] LABS: Partial Thromboplastin Time 29.3 SECONDS (22.3-36.8)
[2021-03-08 17:41] LABS: Alanine Aminotransferase 30 U/L (4-35); Alkaline Phosphatase 85 U/L (38-126); Anion Gap 11 mmol/L (8-16); Aspartate Amino Transferase 47 U/L (14-36); Bilirubin,Total 0.6 mg/dL (0.2-1.3); Blood Urea Nitrogen 20 mg/dL (7-17); CRP 8.9 mg/dL (<1.0); Calcium 8.7 mg/dL (8.4-10.2); Carbon Dioxide 23 mmol/L (22-30); Chloride 96 mmol/L (98-107); Estimated CRCL calculation 40 ml/min; Estimated Glomerular Filt Rate 44; Glucose 405 mg/dL (65-110); Lactate Dehydrogenase 731 U/L (313-618); Potassium 4.3 mmol/L (3.4-5.0); Sodium 130 mmol/L (137-145)
[2021-03-08 17:42] LABS: D Dimer 1.64 ug/mL (<0.48)
--- NOTE | 2021-03-08 17:56 | ED.SOB ---
HPI - SOB/Dyspnea General Chief Complaint: Shortness of Breath/Dyspnea Stated Complaint: COVID +, SOB Time Seen by Provider: 03/08/21 16:53 Source: RN notes reviewed History of Present Illness HPI Narrative: Patient presents emergency department from home via EMS for shortness of breath. Patient states that she is COVID-19 positive. States she been having symptoms for approximately 10 days with a positive home test on February 28 and a positive test at a medical facility on the . States that she 7 increased weakness today and called EMS and was noted to have an O2 sat of 88 on room air patient states she is a diabetic but has been eating has been taking her insulin she denies any fevers or chills chest pain abdominal pain nausea vomiting or any other sign Related Data Home Medications Medication Instructions Recorded Confirmed bisoprolol-hydrochlorothiazide tablet 09/27/19 cyanocobalamin (vitamin B-12) 09/27/19 divalproex PO 09/27/19 ergocalciferol (vitamin D2) 09/27/19 glimepiride mg 09/27/19 insulin syringe-needle U-100 [BD 09/27/19 09/27/19 Insulin Syringe] semaglutide [Ozempic] mg SUBCUT 09/27/19 Allergies Allergy/AdvReac Type Severity Reaction Status Date / Time Sulfa (Sulfonamide Allergy Unknown Hives / Verified 09/27/19 16:45 Antibiotics) Red Face Review of Systems Review of Systems: Gen.: Denies fevers or chills ENT: Denies congestion Respiratory: Reports shortness of CV: Denies chest pain or palpitations GI: Denies abdominal pain nausea, emesis or diarrhea Musculoskeletal: Denies back pain or muscle pain Neuro: Reports weakness Skin: Denies rash Except as documented, all other systems reviewed and negative [facility] Past Medical History Medical History Common migraine Diabetes mellitus Gastroesophageal reflux Hypertension Polyarthralgia Restless leg syndrome Surgical History Surgical History History of back surgery History of hysterectomy History of knee surgery Hx of cholecystectomy Family History Family History Sibling Family history of sleep apnea Other FHx: migraine headaches Family history of Alzheimer's disease Heart disease Hypertension Social History Social History Smoking status: Never smoker Alcohol intake: never Substance use: never Exam Narrative: APPEARANCE: No acute distress, nontoxic, resting in bed EYES: EOMI HEENT: Normocephalic, atraumatic, OMM RESPIRATORY: No respiratory distress coarse breath sounds in bilateral lung field CARDIOVASCULAR: Regular rate and rhythm without murmurs rubs or gallops. ABDOMINAL: Soft, nontender, nondistended, no rebound or guarding MUSCULOSKELETAl: Moves all extremities. No clubbing, cyanosis or edema. NEURO: Awake and alert. Following commands, speech normal, no focal deficits SKIN:: Warm, dry. No rashes lesions or abrasions PSYCHIATRIC: Normal affect/mood, Course Course Emergency Course: Discussed with JAH Walton for Dr. Lucero presentation work-up agrees with admission at this time Discussed with patient and family results of workup and diagnosis. Discussed need for admission. Patient and family understand and agree to current treatment plan Vital Signs Vital signs: Vital Signs Temperature 98.4 F 03/08/21 16:52 Pulse Rate 89 03/08/21 16:52 Respiratory Rate 22 H 03/08/21 16:52 Blood Pressure 134/73 03/08/21 16:52 Pulse Oximetry 89 L 03/08/21 16:52 Temperature 98.4 F 03/08/21 16:52 Pulse Rate 89 03/08/21 16:52 Respiratory Rate 22 H 03/08/21 16:52 Blood Pressure 134/73 03/08/21 16:52 Pulse Oximetry 92 03/08/21 16:58 MDM - SOB/Dyspnea Lab Data Result diagrams: 03/08/21 17:17 03/08/21 17:17 Labs: Lab Re
[2021-03-08] MEDS: SODIUM CHLORIDE 0.9% IV 1,000 ML 999 ML IV CONT (18:11)
[2021-03-08] MEDS: INSULIN ASPART (*BKC) 100 UNITS/ML 6 UNITS SUB-Q (18:11)
[2021-03-08 19:16] VITALS: BP 132/83; PULSE 77; RESP 19; O2SAT 96
[2021-03-08 19:48] VITALS: BP 140/80; PULSE 74; RESP 20; O2SAT 94
--- NOTE | 2021-03-08 19:54 | PM.IMHP ---
H&P: HPI History of Present Illness Date/Time: 03/08/21 19:54 Chief Complaint: Fatigue Narrative: This is a 76-year-old female with past medical history significant for dyslipidemia, type 2 diabetes mellitus, hypertension. Patient presented to the emergency room due to extreme fatigue, shortness of breath, dry cough, body aches and pains, chills, poor appetite, loss of sense of taste and smell, patient has tested positive for COVID roughly 10 days ago she fares got tested at a facility urgent care and she also tested positive with a home kit, some on her relatives who live in the same house have also turned out positive for COVID. Patient was trying [id number] medication like ibuprofen but did not help noticed to be extremely fatigue and shortness of breath at minimal exertion and decided to come to the emergency room for further evaluation. In the emergency room patient was found to have a saturation of 88% on room air was placed on supplemental oxygen 2 L by nasal cannula and her oxygen saturation increased to 98-99%. Preliminary workup was significant for a CT angio of the chest was negative for acute pulmonary embolism but patient with diffuse infiltrates bilaterally distributed throughout both lung cintron, a basic metabolic panel was significant for a creatinine of 1.2 BUN of 20 sodium of 130 chloride 96 glucose 400. Patient has been admitted for further management evaluation and treatment. Review of Systems Review of Systems: Fatigue, body aches and pains ,poor appetite, chills, shortness of breath, cough. Constitutional: Constitutional: Reports chills, Reports fatigue, Reports lethargy, Reports malaise and Reports poor appetite Eyes: Eyes: Denies change in vision ENT: Denies dysphagia, Denies nasal congestion, Denies nasal discharge, Denies nasal obstruction and Denies odynophagia Cardiovascular: Cardiovascular: Denies edema, Denies radiating jaw, neck or arm pain, Denies palpitations, Denies dyspnea and Denies orthopnea Respiratory: Respiratory: Reports cough, Denies excessive phlegm production and Reports dyspnea Gastrointestinal: Gastrointestinal: Denies dyspepsia, Denies heartburn, Denies diarrhea, Denies nausea and Denies vomiting Genitourinary: Genitourinary: Denies dysuria and Denies flank pain Musculoskeletal: Musculoskeletal: Reports myalgias Integumentary/Breasts: Skin/Breast: Denies rash Neurologic: Denies focal weakness and Denies Sensory deficit (Neuro) Psychiatric: Psychiatric: Reports no additional psychiatric complaints and Reports as per HPI Endocrine: Endocrine: Reports no additional endocrine complaints and Reports as per HPI Hematologic/Lymphatic: Hematologic/Lymphatic: Reports no additional hematologic/lymphatic complaints and Reports as per HPI Allergic/Immunologic: Allergic/Immunologic: Reports no additional allergic/immunologic complaints and Reports as per HPI PMFSH Past Medical History Medical History (Updated 03/09/21 @ 02:05 by Ben Fernandez MD) Common migraine Diabetes mellitus Gastroesophageal reflux Hypertension Polyarthralgia Restless leg syndrome Surgical History Surgical History History of back surgery History of hysterectomy History of knee surgery Hx of cholecystectomy Family History Family History Sibling Family history of sleep apnea Other FHx: migraine headaches Family history of Alzheimer's disease Heart disease Hypertension Social History Social History Smoking status: Never smoker Alcohol intake: never Substance use: never Substance use type: does not use Spiritual care concerns: No Meds Home Medications and Allergies Home Medications Medication Instructions Recorded Confirmed Type bisoprolol-hydrochlorothiazide 5 tablet PO DAILY 09/27/19
[2021-03-08 20:26] LABS: Reflex Lactic Acid Yes or No Add Lactic
[2021-03-08 21:00] LABS: Lactic Acid 2.3 mmol/L (0.7-2.1)
[2021-03-08 21:55] VITALS: BMI 34.0
[2021-03-08 22:00] VITALS: BP 142/79; PULSE 69; RESP 18; TEMP 36.7; O2SAT 93
--- NOTE | 2021-03-08 22:01 | PC.NURSE ---
This patient, Sinai Baker, was admitted to [facility] Surg Room 311-01. Patient/family oriented to hospital policies and general routines including ID bracelet, bed and alarms, visiting hours, pain management, procedures, bathroom and other care routines, personal items, smoking policy, room service/diet, and visiting hours. Information on how to activate the Rapid Response Team has been discussed. Patient/Family are encouraged to report perceived risks to care and to ask questions if they do not understand what they are told or what they should do.
[2021-03-09] VITALS (10 sets, daily range): BP systolic 113–144; BP diastolic 62–81; PULSE 60–70; RESP 16–24; TEMP 35.7–36.1; O2SAT 83–92
[2021-03-09 02:32] LABS: INR 0.9; Prothrombin Time 11.9 Seconds (11.1-14.7)
[2021-03-09 02:33] LABS: Alanine Aminotransferase 28 U/L (4-35); Estimated CRCL calculation 47 ml/min; Estimated Glomerular Filt Rate 54
[2021-03-09] MEDS: cefTRIAXone 2 GM in SODIUM CHLORIDE 0.9% IV 100 ML 200 ML IVPB ×2 (02:59→22:00)
[2021-03-09] MEDS: ALBUTEROL SULFATE (*SP) INHALER 2 PUFF INHALATION ×3 (03:04→21:11)
[2021-03-09] MEDS: REMDESIVIR 200 MG/NS 250 ML 200 MG/250 ML BAG 250 MG IVPB (05:37)
[2021-03-09 06:11] LABS: Add Urine Microscopic? YES; Appearance Urine Clear (Clear); Bilirubin Urine Negative (Negative); Blood Urine Negative (Negative); Color Urine Yellow (Yellow); Glucose Urine UA 3+ mg/dL (Negative); Ketones Urine 1+ mg/dL (Negative); Leukocyte Esterase Ur Negative LEU/UL (Negative); Nitrate Urine Negative (Negative); Protein Urine Negative (Negative); Squamous Epithelial Cell Urine Few /hpf (Few); Urobilinogen Urine Negative mg/dL (<2.0)
[2021-03-09 06:57] LABS: Hematocrit 38.1 % (37.0-47.0); Hemoglobin 12.8 g/dL (12.0-15.0); Immature Granulocyte Absolute 0.03 K/mm3 (0.00-0.031); Immature Granulocyte Percent A 0.8 % (0-0.5); Lymphocytes Absolute Auto 0.56 K/mm3 (0.9-3.2); Lymphocytes Percent Auto 14.4 % (18.3-44.2); Mean Corpuscular HGB Conc 33.6 g/dl (32-36); Mean Corpuscular Hemoglobin 29.6 pg (26-34); Mean Platelet Volume 11.5 fl (7.4-10.4); Monocytes Absolute Auto 0.2 K/mm3 (0.1-0.6); Monocytes Percent Auto 5.4 % (2.6-8.5); Neutrophils Absolute Auto 3.1 K/mm3 (1.3-6.7); Neutrophils Percent Auto 79.4 % (45.5-73.1); Platelet Count Result 127 k/mm3 (150-375); Red Blood Count 4.33 M/mm3 (4.2-5.4); White Blood Count 3.9 K/mm3 (4.5-10.0)
[2021-03-09 07:17] LABS: Alanine Aminotransferase 25 U/L (4-35); Albumin Level 3.4 g/dL (3.5-5.1); Alkaline Phosphatase 80 U/L (38-126); Anion Gap 14 mmol/L (8-16); Aspartate Amino Transferase 37 U/L (14-36); Bilirubin,Total 0.5 mg/dL (0.2-1.3); Blood Urea Nitrogen 26 mg/dL (7-17); Calcium 8.5 mg/dL (8.4-10.2); Carbon Dioxide 21 mmol/L (22-30); Chloride 99 mmol/L (98-107); Estimated CRCL calculation 43 ml/min; Estimated Glomerular Filt Rate 49; Glucose 495 mg/dL (65-110); Potassium 4.9 mmol/L (3.4-5.0); Sodium 134 mmol/L (137-145)
[2021-03-09 08:13] LABS: Glucose Point of Care 444 mg/dl (65-105)
[2021-03-09] MEDS: INSULIN GLARGINE (*BKC) 100 UNITS/ML 20 UNITS SUB-Q (08:15)
[2021-03-09] MEDS: INSULIN ASPART (*BKC) 100 UNITS/ML SUB-Q ×6 (08:16→22:02)
[2021-03-09] MEDS: ATORVASTATIN 40 MG TABLET PO (08:21)
[2021-03-09] MEDS: bisoproloL fumarate 5 MG TABLET PO (08:21)
--- NOTE | 2021-03-09 10:32 | PCRCNOTE ---
Window of time for administration has passed. See next scheduled administration.
[2021-03-09 11:26] LABS: Glucose Point of Care 446 mg/dl (65-105)
[2021-03-09] MEDS: DEXAMETHASONE 2 MG TABLET 6 MG PO (12:13)
[2021-03-09] MEDS: INSULIN ASPART (*BKC) 100 UNITS/ML 10 UNITS SUB-Q (12:13)
--- NOTE | 2021-03-09 15:23 | PM.IMPN ---
Progress Note: A&P Assessment and Plan (1) Pneumonia due to 2019 novel coronavirus: Code(s): U07.1 - COVID-19; J12.82 - Pneumonia due to coronavirus disease 2019 Status: Acute Assessment and Plan: Patient has been admitted to regular medical floor Remdesivir plus dexamethasone begun 03/08 Rocephin plus Zithromax for empiric coverage in superinfection bacterial pneumonia begun 03/08 Tocilizumab 400mg 03/09 due to increased oxygen requirements 03/09 f/u CXR Supportive care (2) Acute respiratory failure with hypoxia: Code(s): J96.01 - Acute respiratory failure with hypoxia Status: Acute Assessment and Plan: Continue oxygen supplementation by nasal cannula Supplement Oxygen to keep saturation at 94% Breathing treatments (3) Acute renal insufficiency: Code(s): N28.9 - Disorder of kidney and ureter, unspecified Status: Acute Assessment and Plan: Patient with no other prior values to compare Will continue to monitor Received IV fluids in emergency room (4) T2DM (type 2 diabetes mellitus): Code(s): E11.9 - Type 2 diabetes mellitus without complications Status: Acute Assessment and Plan: Carb consistent 1800 calorie diet Insulin sliding scale as needed Holding metformin and glimepiride Holding semaglutide Added basal Lantus 20 U q AM 03/09 with high-dose SSI and pre-meal TIW (5) Gastroesophageal reflux: Code(s): K21.9 - Gastro-esophageal reflux disease without esophagitis Status: Acute Assessment and Plan: PPI (6) PLMD (periodic limb movement disorder): Code(s): G47.61 - Periodic limb movement disorder Status: Acute Assessment and Plan: controlled Subjective Date/time seen: 03/09/21 15:23 Interval history: 03/09 visit. No shortness of breath. Feels better than yesterday. Minimal cough. No GI upset. Denied chest pain or palpitations. Denied leg swelling. Denied dizziness. Admits to fatigue. Oxygen was somehow 1 liter/minute patient's saturations were low. Now on non-rebreather mask her saturations are running 94-95%. She denied any shortness of breath during the entire day. Review of Systems Review of Systems: All systems reviewed & are unremarkable except as noted in HPI and below Exam Narrative: HEENT: PERRL, sclerae nonicteric, pharyngeal mucosa pink and intact NECK: No JVD, adenopathy, or thyromegaly CHEST: Diminished breath sounds throughout. Mildly tachypneic. HEART: NL S1/S2, regular, no murmur ABDOMEN: BS+, soft, nontender, no mass, no bruits EXTREMITIES: No cyanosis, edema, or clubbing NEUROLOGIC: CN intact and symmetric to inspection. MUSCULOSKELETAL: Tone and strength symmetric. PSYCH: Alert. Oriented to person, place, and time. Objective Data Vital Signs Vital Signs: Vital Signs - 24 hr 03/08/21 16:52 03/08/21 16:58 03/08/21 19:16 Temperature 98.4 F Pulse Rate 89 77 Respiratory Rate 22 H 19 Blood Pressure 134/73 132/83 Pulse Oximetry 89 L 92 96 03/08/21 19:48 03/08/21 22:00 03/09/21 05:30 Temperature 98.0 F 96.9 F L Pulse Rate 74 69 70 Respiratory Rate 20 18 18 Blood Pressure 140/80 142/79 H 124/67 Pulse Oximetry 94 93 91 03/09/21 08:00 03/09/21 08:21 03/09/21 12:00 Temperature 96.4 F L 96.4 F L Pulse Rate 60 60 67 Respiratory Rate 20 20 Blood Pressure 144/81 H 113/66 Pulse Oximetry 90 90 03/09/21 14:44 03/09/21 15:20 Temperature Pulse Rate Respiratory Rate Blood Pressure Pulse Oximetry 83 L 91 Intake/Output Intake/Output: Intake & Output 03/06/21 03/07/21 03/08/21 03/09/21 23:59 23:59 23:59 23:59 Intake Total 1000 1950 Output Total 800 Balance 1000 1150 Meds/Results Medications: Active Medications Generic Name Dose Route Start Last Admin Trade Name Freq PRN Reason Stop Dose Admin Albuterol 2 puff 03/09/21 02:00 03/09/21 14:43 Albuterol Sulfate (*Sp) Inhaler INHALATION 2 puff Q6HRT [facility] Admi
[2021-03-09 16:54] LABS: Glucose Point of Care 300 mg/dl (65-105)
[2021-03-09] MEDS: ENOXAPARIN 40 MG/0.4 ML SYRINGE SUB-Q (17:11)
[2021-03-09 19:49] LABS: Glucose Point of Care 312 mg/dl (65-105)
[2021-03-09] MEDS: REMDESIVIR 100 MG/NS 250 ML 100 MG/250 ML BAG 250 MG IVPB (23:10)
[2021-03-10] VITALS (15 sets, daily range): BP systolic 115–143; BP diastolic 51–90; PULSE 60–74; RESP 14–22; TEMP 35.6–36.8; O2SAT 90–98
[2021-03-10] MEDS: ALBUTEROL SULFATE (*SP) INHALER 2 PUFF INHALATION ×4 (01:43→22:34)
[2021-03-10] MEDS: ALBUTEROL SULFATE NEB 2.5 MG/0.5 ML INH INHALATION (03:40)
[2021-03-10 07:46] LABS: Alanine Aminotransferase 31 U/L (4-35); Estimated CRCL calculation 43 ml/min; Estimated Glomerular Filt Rate 49
[2021-03-10 07:47] LABS: Prothrombin Time 12.7 Seconds (11.1-14.7)
[2021-03-10 08:17] LABS: Glucose Point of Care 377 mg/dl (65-105)
[2021-03-10] MEDS: INSULIN ASPART (*BKC) 100 UNITS/ML SUB-Q ×5 (08:25→17:39)
[2021-03-10] MEDS: ATORVASTATIN 40 MG TABLET PO (08:27)
[2021-03-10] MEDS: bisoproloL fumarate 5 MG TABLET PO (08:27)
[2021-03-10] MEDS: DEXAMETHASONE 2 MG TABLET 6 MG PO (08:27)
[2021-03-10] MEDS: ENOXAPARIN 40 MG/0.4 ML SYRINGE SUB-Q (08:28)
[2021-03-10] MEDS: INSULIN GLARGINE (*BKC) 100 UNITS/ML 30 UNITS SUB-Q (08:42)
--- NOTE | 2021-03-10 09:22 | PM.IMPN ---
Progress Note: A&P Assessment and Plan (1) Pneumonia due to 2019 novel coronavirus: Code(s): U07.1 - COVID-19; J12.82 - Pneumonia due to coronavirus disease 2019 Status: Acute Assessment and Plan: Patient has been admitted to regular medical floor Remdesivir plus dexamethasone begun 03/08 Rocephin plus Zithromax for empiric coverage in superinfection bacterial pneumonia begun 03/08 Tocilizumab 400mg 03/09 due to increased oxygen requirements 03/09 f/u CXR with moderate bilateral pneumonia Continue to support with supplemental oxygen (2) Acute respiratory failure with hypoxia: Code(s): J96.01 - Acute respiratory failure with hypoxia Status: Acute Assessment and Plan: Continue oxygen supplementation by nasal cannula Supplement Oxygen to keep saturation at in mid-90s Breathing treatments (3) Acute renal insufficiency: Code(s): N28.9 - Disorder of kidney and ureter, unspecified Status: Acute Assessment and Plan: Patient with no other prior values to compare Will continue to monitor Received IV fluids in emergency room 03/10 creatinine stable at 1.1 (4) T2DM (type 2 diabetes mellitus): Code(s): E11.9 - Type 2 diabetes mellitus without complications Status: Acute Assessment and Plan: Carb consistent 1800 calorie diet Insulin sliding scale as needed Holding metformin and glimepiride Holding semaglutide Added basal Lantus 20 U q AM 03/09 with high-dose SSI and pre-meal TIW 03/10 increased Lantus to 30 U q AM (5) Gastroesophageal reflux: Code(s): K21.9 - Gastro-esophageal reflux disease without esophagitis Status: Acute Assessment and Plan: PPI (6) PLMD (periodic limb movement disorder): Code(s): G47.61 - Periodic limb movement disorder Status: Acute Assessment and Plan: controlled Subjective Date/time seen: 03/10/21 09:22 Interval history: 03/10 visit. SOB while eating. Mild cough. No GI upset. Denied chest pain or palpitations. Denied leg swelling. Denied dizziness. Admits to fatigue. Continues on oxygen at 15 L. Review of Systems Review of Systems: All systems reviewed & are unremarkable except as noted in HPI and below Exam Narrative: HEENT: PERRL, sclerae nonicteric, pharyngeal mucosa pink and intact NECK: No JVD, adenopathy, or thyromegaly CHEST: Diminished breath sounds throughout. Mildly tachypneic. HEART: NL S1/S2, regular, no murmur ABDOMEN: BS+, soft, nontender, no mass, no bruits EXTREMITIES: No cyanosis, edema, or clubbing NEUROLOGIC: CN intact and symmetric to inspection. MUSCULOSKELETAL: Tone and strength symmetric. PSYCH: Alert. Oriented to person, place, and time. Objective Data Vital Signs Vital Signs: Vital Signs - 24 hr 03/09/21 12:00 03/09/21 14:44 03/09/21 15:20 Temperature 96.4 F L Pulse Rate 67 Respiratory Rate 20 Blood Pressure 113/66 Pulse Oximetry 90 83 L 91 03/09/21 16:00 03/09/21 19:14 03/09/21 19:45 Temperature 96.3 F L Pulse Rate 68 68 Respiratory Rate 16 16 Blood Pressure 139/68 Pulse Oximetry 92 92 91 03/09/21 20:00 03/10/21 00:00 03/10/21 01:51 Temperature 96.4 F L 96.5 F L Pulse Rate 63 70 Respiratory Rate 24 H 22 H Blood Pressure 125/62 118/59 L Pulse Oximetry 90 92 92 03/10/21 03:15 03/10/21 03:40 03/10/21 03:50 Temperature Pulse Rate 72 74 Respiratory Rate 22 H 20 Blood Pressure Pulse Oximetry 91 03/10/21 04:00 03/10/21 08:00 03/10/21 08:27 Temperature 96.8 F L 96.0 F L Pulse Rate 64 71 71 Respiratory Rate 22 H 18 Blood Pressure 136/74 137/62 Pulse Oximetry 92 93 03/10/21 08:48 Temperature Pulse Rate Respiratory Rate Blood Pressure Pulse Oximetry 90 Intake/Output Intake/Output: Intake & Output 03/07/21 03/08/21 03/09/21 03/10/21 23:59 23:59 23:59 23:59 Intake Total 1000 2620 Output Total 1400 1000 Balance 1000 1220 -1000 Meds/Results Medicatio
[2021-03-10 11:35] LABS: Glucose Point of Care 369 mg/dl (65-105)
--- NOTE | 2021-03-10 16:15 | PCRCNOTE ---
Window of time for administration has passed. See next scheduled administration.
[2021-03-10 16:38] LABS: Glucose Point of Care 198 mg/dl (65-105)
[2021-03-10 21:08] LABS: Glucose Point of Care 141 mg/dl (65-105)
[2021-03-10] MEDS: REMDESIVIR 100 MG/NS 250 ML 100 MG/250 ML BAG 250 MG IVPB (22:47)
[2021-03-10] MEDS: cefTRIAXone 2 GM in SODIUM CHLORIDE 0.9% IV 100 ML 200 ML IVPB (23:53)
[2021-03-11] VITALS (10 sets, daily range): BP systolic 106–140; BP diastolic 66–78; PULSE 61–77; RESP 18–24; TEMP 35.7–36.7; O2SAT 91–100; BMI 34.0
[2021-03-11 08:36] LABS: Glucose Point of Care 257 mg/dl (65-105)
--- NOTE | 2021-03-11 08:40 | PM.IMPN ---
Progress Note: A&P Assessment and Plan (1) Pneumonia due to 2019 novel coronavirus: Code(s): U07.1 - COVID-19; J12.82 - Pneumonia due to coronavirus disease 2019 Status: Acute Assessment and Plan: Remdesivir and dexamethasone day 3 DC azithromycin, continue the azithromycin for 2 more days Tocilizumab 720mg 03/09 due to increased oxygen requirements 03/09 f/u CXR with moderate bilateral pneumonia CTA No PE, diffuse covid PNA Inflammatory markers still elevated Ferritin 736, LDH 1126, CRP 3.4, Dimer 0.94 Continue to support with supplemental oxygen Wean oxygen to maintain saturation >92% Breathing treatments IS and Cornette therapy (2) Acute respiratory failure with hypoxia: Code(s): J96.01 - Acute respiratory failure with hypoxia Status: Acute Assessment and Plan: SPO2 reported to be 79% this am Currently on 15LNC and 15LNRB Continue oxygen supplementation by nasal cannula Supplement Oxygen to keep saturation >92% Breathing treatments Trend SPO2 (3) Acute renal insufficiency: Code(s): N28.9 - Disorder of kidney and ureter, unspecified Status: Acute Assessment and Plan: Patient with no other prior values to compare Will continue to monitor Received IV fluids in emergency room 03/11 creatinine stable at 1.1 Probably patient's baseline (4) T2DM (type 2 diabetes mellitus): Code(s): E11.9 - Type 2 diabetes mellitus without complications Status: Acute Assessment and Plan: Carb consistent 1800 calorie diet Insulin sliding scale as needed Holding metformin and glimepiride Holding semaglutide Added basal Lantus 20 U q AM 03/09 with high-dose SSI and pre-meal TIW 03/11 increased Lantus to 40 U q AM Increase mealtime dose from 5 to 7units Looks like 24 hour insulin requirements is 71 Look like glucose is higher in the am (5) Gastroesophageal reflux: Code(s): K21.9 - Gastro-esophageal reflux disease without esophagitis Status: Acute Assessment and Plan: PPI (6) PLMD (periodic limb movement disorder): Code(s): G47.61 - Periodic limb movement disorder Status: Acute Assessment and Plan: controlled Time Spent With Patient Time: Oxygen weaning, elongated exam Time with patient: Greater than 35 minutes Subjective Date/time seen: 03/11/21 0840 Interval history: Date/Time: 03/08/21 19:54 Narrative: This is a 76-year-old female with past medical history significant for dyslipidemia, type 2 diabetes mellitus, hypertension. Patient presented to the emergency room due to extreme fatigue, shortness of breath, dry cough, body aches and pains, chills, poor appetite, loss of sense of taste and smell, patient has tested positive for COVID roughly 10 days ago she fares got tested at a facility urgent care and she also tested positive with a home kit, some on her relatives who live in the same house have also turned out positive for COVID. Patient was trying anju-mio-erdoikj medication like ibuprofen but did not help noticed to be extremely fatigue and shortness of breath at minimal exertion and decided to come to the emergency room for further evaluation. In the emergency room patient was found to have a saturation of 88% on room air was placed on supplemental oxygen 2 L by nasal cannula and her oxygen saturation increased to 98-99%. Preliminary workup was significant for a CT angio of the chest was negative for acute pulmonary embolism but patient with diffuse infiltrates bilaterally distributed throughout both lung cintron, a basic metabolic panel was significant for a creatinine of 1.2 BUN of 20 sodium of 130 chloride 96 glucose 400. Patient has been admitted for further management evaluation and treatment. Date/Time 03/11/21 0840 Patient is laying in bed and stated that she did not know if she was doing ok or not. She complained that
--- NOTE | 2021-03-11 08:40 | P.PNIM_ITS ---
Progress Note: A&P Assessment and Plan (1) Pneumonia due to 2019 novel coronavirus: Code(s): U07.1 - COVID-19; J12.82 - Pneumonia due to coronavirus disease 2019 Status: Acute Assessment and Plan: * Remdesivir and dexamethasone day 3 * DC azithromycin, continue the azithromycin for 2 more days * Tocilizumab 720mg 03/09 due to increased oxygen requirements * 03/09 f/u CXR with moderate bilateral pneumonia * CTA No PE, diffuse covid PNA * Inflammatory markers still elevated Ferritin 736, LDH 1126, CRP 3.4, Dimer 0.94 * Continue to support with supplemental oxygen * Wean oxygen to maintain saturation >92% * Breathing treatments * IS and Cornette therapy (2) Acute respiratory failure with hypoxia: Code(s): J96.01 - Acute respiratory failure with hypoxia Status: Acute Assessment and Plan: * SPO2 reported to be 79% this am * Currently on 15LNC and 15LNRB * Continue oxygen supplementation by nasal cannula * Supplement Oxygen to keep saturation >92% * Breathing treatments * Trend SPO2 (3) Acute renal insufficiency: Code(s): N28.9 - Disorder of kidney and ureter, unspecified Status: Acute Assessment and Plan: * Patient with no other prior values to compare * Will continue to monitor * Received IV fluids in emergency room * 03/11 creatinine stable at 1.1 * Probably patient's baseline (4) T2DM (type 2 diabetes mellitus): Code(s): E11.9 - Type 2 diabetes mellitus without complications Status: Acute Assessment and Plan: * Carb consistent 1800 calorie diet * Insulin sliding scale as needed * Holding metformin and glimepiride * Holding semaglutide * Added basal Lantus 20 U q AM 03/09 with high-dose SSI and pre-meal TIW * 03/11 increased Lantus to 40 U q AM * Increase mealtime dose from 5 to 7units * Looks like 24 hour insulin requirements is 71 * Look like glucose is higher in the am (5) Gastroesophageal reflux: Code(s): K21.9 - Gastro-esophageal reflux disease without esophagitis Status: Acute Assessment and Plan: * PPI (6) PLMD (periodic limb movement disorder): Code(s): G47.61 - Periodic limb movement disorder Status: Acute Assessment and Plan: * controlled Time Spent With Patient Time: Oxygen weaning, elongated exam Time with patient: Greater than 35 minutes Subjective Date/time seen: 03/11/21 0840 Interval history: Date/Time: 03/08/21 19:54 Narrative: This is a 76-year-old female with past medical history significant for dyslipidemia, type 2 diabetes mellitus, hypertension. Patient presented to the emergency room due to extreme fatigue, shortness of breath, dry cough, body aches and pains, chills, poor appetite, loss of sense of taste and smell, patient has tested positive for COVID roughly 10 days ago she fares got tested at a facility urgent care and she also tested positive with a home kit, some on her relatives who live in the same house have also turned out positive for COVID. Patient was trying edfb-dku-yiuabro medication like ibuprofen but did not help noticed to be extremely fatigue and shortness of breath at minimal exertion and decided to come to the emergency room for further evaluation. In the emergency room patient was found to have a saturation of 88% on room air was placed on supplemental oxygen 2 L by nasal cannula and her oxygen saturation increased to 98-99%. Preliminary workup wa
[2021-03-11 08:41] LABS: Basophils Percent Auto 0.1 % (0.2-1.2); Hematocrit 41.5 % (37.0-47.0); Hemoglobin 14.1 g/dL (12.0-15.0); Immature Granulocyte Absolute 0.13 K/mm3 (0.00-0.031); Immature Granulocyte Percent A 1.4 % (0-0.5); Lymphocytes Absolute Auto 0.92 K/mm3 (0.9-3.2); Lymphocytes Percent Auto 9.9 % (18.3-44.2); Mean Corpuscular Hemoglobin 29.7 pg (26-34); Mean Corpuscular Volume 87.6 fl (80-100); Mean Platelet Volume 11.5 fl (7.4-10.4); Monocytes Absolute Auto 0.8 K/mm3 (0.1-0.6); Monocytes Percent Auto 8.1 % (2.6-8.5); Neutrophils Absolute Auto 7.5 K/mm3 (1.3-6.7); Neutrophils Percent Auto 80.5 % (45.5-73.1); Platelet Count Result 247 k/mm3 (150-375); Red Blood Count 4.74 M/mm3 (4.2-5.4); Red Cell Distribution Width 13.1 % (11.5-14.5); White Blood Count 9.3 K/mm3 (4.5-10.0)
[2021-03-11 08:50] LABS: Alanine Aminotransferase 41 U/L (4-35); Albumin Level 3.4 g/dL (3.5-5.1); Alkaline Phosphatase 88 U/L (38-126); Anion Gap 9 mmol/L (8-16); Aspartate Amino Transferase 70 U/L (14-36); Bilirubin,Total 0.5 mg/dL (0.2-1.3); Blood Urea Nitrogen 31 mg/dL (7-17); Calcium 8.8 mg/dL (8.4-10.2); Carbon Dioxide 24 mmol/L (22-30); Chloride 104 mmol/L (98-107); Estimated CRCL calculation 43 ml/min; Estimated Glomerular Filt Rate 49; Glucose 315 mg/dL (65-110); Sodium 137 mmol/L (137-145)
[2021-03-11 08:57] LABS: D Dimer 0.94 ug/mL (<0.48)
[2021-03-11] MEDS: bisoproloL fumarate 5 MG TABLET PO (09:09)
[2021-03-11] MEDS: DEXAMETHASONE 2 MG TABLET 6 MG PO (09:09)
[2021-03-11] MEDS: ENOXAPARIN 40 MG/0.4 ML SYRINGE SUB-Q (09:09)
[2021-03-11] MEDS: INSULIN ASPART (*BKC) 100 UNITS/ML SUB-Q ×4 (09:10→17:07)
[2021-03-11] MEDS: INSULIN GLARGINE (*BKC) 100 UNITS/ML 30 UNITS SUB-Q (09:10)
[2021-03-11] MEDS: ATORVASTATIN 40 MG TABLET PO (09:10)
[2021-03-11 09:24] LABS: Alanine Aminotransferase 43 U/L (4-35); Albumin Level 3.6 g/dL (3.5-5.1); Alkaline Phosphatase 87 U/L (38-126); Anion Gap 10 mmol/L (8-16); Aspartate Amino Transferase 72 U/L (14-36); Bilirubin,Total 0.4 mg/dL (0.2-1.3); Blood Urea Nitrogen 30 mg/dL (7-17); CRP 3.4 mg/dL (<1.0); Calcium 8.9 mg/dL (8.4-10.2); Carbon Dioxide 23 mmol/L (22-30); Chloride 102 mmol/L (98-107); Estimated CRCL calculation 43 ml/min; Estimated Glomerular Filt Rate 49; Glucose 313 mg/dL (65-110); Lactate Dehydrogenase 1126 U/L (313-618); Sodium 135 mmol/L (137-145)
[2021-03-11] MEDS: ALBUTEROL SULFATE (*SP) INHALER 2 PUFF INHALATION ×3 (09:25→20:31)
--- NOTE | 2021-03-11 09:30 | PC.NURSE ---
Pt desaturated to 79% on L HF NC after sitting up in bed, this nurse place 15 L HF NC and 15 L Non-rebreathing and 02 saturation improved, respiratory therapy Carolina called to assess pt, Carolina continued pt on 15 L HF NC and 15 L Non-rebreathing, Stephen Clifford DIRECT MARKETING REPRESENTATIVE pt provider informed.
--- NOTE | 2021-03-11 10:39 | PC.NURSE ---
PT weaned to 2L HF NC, from 15 HF NC and 15 non breather. 93% oxygen saturation resting in bed.
[2021-03-11 11:33] LABS: NT Pro B Type Natriuretic Pept 1210 pg/mL (5-100)
[2021-03-11 11:35] LABS: Hematocrit 42.2 % (37.0-47.0); Hemoglobin 14.1 g/dL (12.0-15.0); Mean Corpuscular HGB Conc 33.4 g/dl (32-36); Mean Corpuscular Hemoglobin 29.9 pg (26-34); Mean Corpuscular Volume 89.6 fl (80-100); Mean Platelet Volume 11.5 fl (7.4-10.4); Platelet Count Result 233 k/mm3 (150-375); Red Blood Count 4.71 M/mm3 (4.2-5.4); Red Cell Distribution Width 13.2 % (11.5-14.5); White Blood Count 9.5 K/mm3 (4.5-10.0)
[2021-03-11 11:58] LABS: Glucose Point of Care 323 mg/dl (65-105)
[2021-03-11] MEDS: INSULIN ASPART (*BKC) 100 UNITS/ML 7 UNITS SUB-Q ×2 (12:22→17:07)
--- NOTE | 2021-03-11 12:59 | PC.NURSE ---
Pt up to chair this shift for lunch, requiring 15 L HF NC, currently 90% 15 L HF NC.
--- NOTE | 2021-03-11 14:11 | PCNSR ---
On 03/11/21, the student, Bre Steve, provided care and completed [facility] documentation on this patient. I have reviewed the student's documentation and agree with the findings.
[2021-03-11 15:37] LABS: Glucose Point of Care 285 mg/dl (65-105)
[2021-03-11] MEDS: REMDESIVIR 100 MG/NS 250 ML 100 MG/250 ML BAG 250 MG IVPB (21:00)
[2021-03-11 22:21] LABS: Glucose Point of Care 297 mg/dl (65-105)
[2021-03-12] VITALS (13 sets, daily range): BP systolic 112–150; BP diastolic 65–85; PULSE 65–77; RESP 18–20; TEMP 35.8–36.9; O2SAT 79–100
[2021-03-12] MEDS: cefTRIAXone 2 GM in SODIUM CHLORIDE 0.9% IV 100 ML 200 ML IVPB ×2 (00:09→20:54)
[2021-03-12] MEDS: ALBUTEROL SULFATE (*SP) INHALER 2 PUFF INHALATION ×4 (02:08→20:10)
[2021-03-12 06:34] LABS: Basophils Percent Auto 0.2 % (0.2-1.2); Hematocrit 41.1 % (37.0-47.0); Immature Granulocyte Absolute 0.12 K/mm3 (0.00-0.031); Immature Granulocyte Percent A 1.4 % (0-0.5); Lymphocytes Absolute Auto 0.75 K/mm3 (0.9-3.2); Lymphocytes Percent Auto 8.8 % (18.3-44.2); Mean Corpuscular HGB Conc 34.1 g/dl (32-36); Mean Corpuscular Hemoglobin 29.6 pg (26-34); Mean Corpuscular Volume 86.9 fl (80-100); Mean Platelet Volume 11.6 fl (7.4-10.4); Monocytes Absolute Auto 0.6 K/mm3 (0.1-0.6); Neutrophils Absolute Auto 7.1 K/mm3 (1.3-6.7); Neutrophils Percent Auto 82.6 % (45.5-73.1); Platelet Count Result 239 k/mm3 (150-375); Red Blood Count 4.73 M/mm3 (4.2-5.4); White Blood Count 8.6 K/mm3 (4.5-10.0)
[2021-03-12 06:43] LABS: Alanine Aminotransferase 39 U/L (4-35); Albumin Level 3.3 g/dL (3.5-5.1); Alkaline Phosphatase 98 U/L (38-126); Anion Gap 11 mmol/L (8-16); Aspartate Amino Transferase 53 U/L (14-36); Bilirubin,Total 0.7 mg/dL (0.2-1.3); Blood Urea Nitrogen 27 mg/dL (7-17); Calcium 8.7 mg/dL (8.4-10.2); Carbon Dioxide 22 mmol/L (22-30); Chloride 104 mmol/L (98-107); Estimated CRCL calculation 47 ml/min; Estimated Glomerular Filt Rate 54; Glucose 327 mg/dL (65-110); Potassium 3.7 mmol/L (3.4-5.0); Sodium 137 mmol/L (137-145)
[2021-03-12 07:07] LABS: Prothrombin Time 13.5 Seconds (11.1-14.7)
[2021-03-12 08:40] LABS: Glucose Point of Care 291 mg/dl (65-105)
[2021-03-12] MEDS: INSULIN ASPART (*BKC) 100 UNITS/ML SUB-Q ×2 (08:55→12:25)
[2021-03-12] MEDS: INSULIN ASPART (*BKC) 100 UNITS/ML 7 UNITS SUB-Q ×2 (08:55→12:25)
[2021-03-12] MEDS: ATORVASTATIN 40 MG TABLET PO (08:56)
[2021-03-12] MEDS: INSULIN GLARGINE (*BKC) 100 UNITS/ML 40 UNITS SUB-Q (08:56)
[2021-03-12] MEDS: ENOXAPARIN 40 MG/0.4 ML SYRINGE SUB-Q (08:56)
[2021-03-12] MEDS: DEXAMETHASONE 2 MG TABLET 6 MG PO (08:56)
[2021-03-12] MEDS: bisoproloL fumarate 5 MG TABLET PO (08:56)
--- NOTE | 2021-03-12 09:20 | PM.IMPN ---
Progress Note: A&P Assessment and Plan (1) Pneumonia due to 2019 novel coronavirus: Code(s): U07.1 - COVID-19; J12.82 - Pneumonia due to coronavirus disease 2019 Status: Acute Assessment and Plan: Remdesivir and dexamethasone day 4 DC azithromycin, continue the azithromycin for 1 more days Tocilizumab 720mg 03/09 due to increased oxygen requirements 03/09 f/u CXR with moderate bilateral pneumonia CTA No PE, diffuse covid PNA Inflammatory markers still elevated Ferritin 736, LDH 1126, CRP 3.4, Dimer 0.94 Continue to support with supplemental oxygen Wean oxygen to maintain saturation >92% Breathing treatments IS and Cornette therapy Repeat chest xray in the am ABG ordered and showed respiratory alkalosis Lasix x 4 doses ordered since BNP is elevated Will get echo (2) Acute respiratory failure with hypoxia: Code(s): J96.01 - Acute respiratory failure with hypoxia Status: Acute Assessment and Plan: SPO2 reported to be 76% this am Currently on 15LNC and 15LNRB Continue oxygen supplementation by nasal cannula Supplement Oxygen to keep saturation >92% Breathing treatments Trend SPO2 (3) Acute renal insufficiency: Code(s): N28.9 - Disorder of kidney and ureter, unspecified Status: Acute Assessment and Plan: Patient with no other prior values to compare Will continue to monitor Received IV fluids in emergency room 03/11 creatinine stable at 1.1 Probably patient's baseline (4) T2DM (type 2 diabetes mellitus): Code(s): E11.9 - Type 2 diabetes mellitus without complications Status: Acute Assessment and Plan: Glucose 327 Carb consistent 1800 calorie diet Insulin sliding scale as needed Holding metformin and glimepiride Holding semaglutide Added basal Lantus 20 U q AM 03/09 with high-dose SSI and pre-meal TIW 03/11 increased Lantus to 40 U q AM Increase mealtime dose 10 units Looks like 24 hour insulin requirements is 71 Look like glucose is higher in the am (5) Gastroesophageal reflux: Code(s): K21.9 - Gastro-esophageal reflux disease without esophagitis Status: Acute Assessment and Plan: PPI (6) PLMD (periodic limb movement disorder): Code(s): G47.61 - Periodic limb movement disorder Status: Acute Assessment and Plan: controlled (7) Transaminitis: Code(s): R74.01 - Elevation of levels of liver transaminase levels Status: Acute Assessment and Plan: AST/ALT 53/39 Trend Get hep panel in the am Consider RUQ ultrasound Time Spent With Patient Time with patient: Greater than 35 minutes Subjective Date/time seen: 03/12/21 15:25 Interval history: Date/Time: 03/08/21 19:54 Narrative: This is a 76-year-old female with past medical history significant for dyslipidemia, type 2 diabetes mellitus, hypertension. Patient presented to the emergency room due to extreme fatigue, shortness of breath, dry cough, body aches and pains, chills, poor appetite, loss of sense of taste and smell, patient has tested positive for COVID roughly 10 days ago she fares got tested at a facility urgent care and she also tested positive with a home kit, some on her relatives who live in the same house have also turned out positive for COVID. Patient was trying aqlb-uwa-rwykfdh medication like ibuprofen but did not help noticed to be extremely fatigue and shortness of breath at minimal exertion and decided to come to the emergency room for further evaluation. In the emergency room patient was found to have a saturation of 88% on room air was placed on supplemental oxygen 2 L by nasal cannula and her oxygen saturation increased to 98-99%. Preliminary workup was significant for a CT angio of the chest was negative for acute pulmonary embolism but patient with diffuse infiltrates bilaterally distributed throughout bot
--- NOTE | 2021-03-12 09:20 | P.PNIM_ITS ---
Progress Note: A&P Assessment and Plan (1) Pneumonia due to 2019 novel coronavirus: Code(s): U07.1 - COVID-19; J12.82 - Pneumonia due to coronavirus disease 2019 Status: Acute Assessment and Plan: * Remdesivir and dexamethasone day 4 * DC azithromycin, continue the azithromycin for 1 more days * Tocilizumab 720mg 03/09 due to increased oxygen requirements * 03/09 f/u CXR with moderate bilateral pneumonia * CTA No PE, diffuse covid PNA * Inflammatory markers still elevated Ferritin 736, LDH 1126, CRP 3.4, Dimer 0.94 * Continue to support with supplemental oxygen * Wean oxygen to maintain saturation >92% * Breathing treatments * IS and Cornette therapy * Repeat chest xray in the am * ABG ordered and showed respiratory alkalosis * Lasix x 4 doses ordered since BNP is elevated * Will get echo (2) Acute respiratory failure with hypoxia: Code(s): J96.01 - Acute respiratory failure with hypoxia Status: Acute Assessment and Plan: * SPO2 reported to be 76% this am * Currently on 15LNC and 15LNRB * Continue oxygen supplementation by nasal cannula * Supplement Oxygen to keep saturation >92% * Breathing treatments * Trend SPO2 (3) Acute renal insufficiency: Code(s): N28.9 - Disorder of kidney and ureter, unspecified Status: Acute Assessment and Plan: * Patient with no other prior values to compare * Will continue to monitor * Received IV fluids in emergency room * 03/11 creatinine stable at 1.1 * Probably patient's baseline (4) T2DM (type 2 diabetes mellitus): Code(s): E11.9 - Type 2 diabetes mellitus without complications Status: Acute Assessment and Plan: * Glucose 327 * Carb consistent 1800 calorie diet * Insulin sliding scale as needed * Holding metformin and glimepiride * Holding semaglutide * Added basal Lantus 20 U q AM 03/09 with high-dose SSI and pre-meal TIW * 03/11 increased Lantus to 40 U q AM * Increase mealtime dose 10 units * Looks like 24 hour insulin requirements is 71 * Look like glucose is higher in the am (5) Gastroesophageal reflux: Code(s): K21.9 - Gastro-esophageal reflux disease without esophagitis Status: Acute Assessment and Plan: * PPI (6) PLMD (periodic limb movement disorder): Code(s): G47.61 - Periodic limb movement disorder Status: Acute Assessment and Plan: * controlled (7) Transaminitis: Code(s): R74.01 - Elevation of levels of liver transaminase levels Status: Acute Assessment and Plan: * AST/ALT 53/39 * Trend * Get hep panel in the am * Consider RUQ ultrasound Time Spent With Patient Time with patient: Greater than 35 minutes Subjective Date/time seen: 03/12/21 15:25 Interval history: Date/Time: 03/08/21 19:54 Narrative: This is a 76-year-old female with past medical history significant for dyslipidemia, type 2 diabetes mellitus, hypertension. Patient presented to the emergency room due to extreme fatigue, shortness of breath, dry cough, body aches and pains, chills, poor appetite, loss of sense of taste and smell, patient has tested positive for COVID roughly 10 days ago she fares got tested at a facility urgent care and she also tested positive with a home kit, some on her relatives who live in the same house have also turned out positive for COVID. Patient was trying over-
[2021-03-12 10:26] LABS: Carboxyhemoglobin 0.3 % THb (0-2.0); Device HIGH FLOW NASAL CANN; Fractional Inspired Oxygen 100 %; HCO3 ABG 18.5 mEq/l (22.0-26.0); Methemoglobin ABG 0.2 %THb (0-1.5); Modified Allen's Test Pass; Oxygen Content ABG 18.6 %vol (16.0-22.0); Oxygen Saturation ABG 93.6 % (95.0-100.0); Oxyhemoglobin 89.6 % THb (90.0-100.0); PCO2 ABG 24.9 mmHg (35.0-45.0); PO2 ABG 61.1 mmHg (80.0-100.0); PO2 FiO2 Ratio Arterial Blood 0.61 %; Reduced Hemoglobin 9.9 %THb (0-5.0); Site Drawn RIGHT RADIAL; Total Hemoglobin 14.8 g/dL (12.0-18.0); pH ABG 7.488 (7.350-7.450)
[2021-03-12 12:08] LABS: Glucose Point of Care 249 mg/dl (65-105)
[2021-03-12] MEDS: ACETAMINOPHEN 325 MG TABLET 650 MG PO (14:13)
[2021-03-12 16:24] LABS: Glucose Point of Care 118 mg/dl (65-105)
[2021-03-12] MEDS: FUROSEMIDE INJ 40 MG/4 ML VIAL IV PUSH (16:47)
[2021-03-12] MEDS: INSULIN ASPART (*BKC) 100 UNITS/ML 10 UNITS SUB-Q (16:47)
[2021-03-12 20:55] LABS: Glucose Point of Care 256 mg/dl (65-105)
[2021-03-13] VITALS (12 sets, daily range): BP systolic 104–140; BP diastolic 49–97; PULSE 58–87; RESP 16–20; TEMP 35.5–36.6; O2SAT 87–100
[2021-03-13] MEDS: REMDESIVIR 100 MG/NS 250 ML 100 MG/250 ML BAG 250 MG IVPB (00:03)
[2021-03-13] MEDS: ALBUTEROL SULFATE (*SP) INHALER 2 PUFF INHALATION ×4 (01:49→20:19)
[2021-03-13 08:01] LABS: Glucose Point of Care 295 mg/dl (65-105)
[2021-03-13 08:39] LABS: Basophils Percent Auto 0.1 % (0.2-1.2); Hematocrit 42.9 % (37.0-47.0); Hemoglobin 14.9 g/dL (12.0-15.0); Immature Granulocyte Absolute 0.15 K/mm3 (0.00-0.031); Lymphocytes Absolute Auto 0.77 K/mm3 (0.9-3.2); Lymphocytes Percent Auto 5.1 % (18.3-44.2); Mean Corpuscular HGB Conc 34.7 g/dl (32-36); Mean Corpuscular Hemoglobin 29.3 pg (26-34); Mean Corpuscular Volume 84.4 fl (80-100); Mean Platelet Volume 11.2 fl (7.4-10.4); Monocytes Absolute Auto 0.4 K/mm3 (0.1-0.6); Monocytes Percent Auto 2.8 % (2.6-8.5); Neutrophils Absolute Auto 13.7 K/mm3 (1.3-6.7); Platelet Count Result 280 k/mm3 (150-375); Red Blood Count 5.08 M/mm3 (4.2-5.4); Red Cell Distribution Width 12.9 % (11.5-14.5)
[2021-03-13 08:44] LABS: Prothrombin Time 13.5 Seconds (11.1-14.7)
[2021-03-13 08:47] LABS: D Dimer 3.31 ug/mL (<0.48)
[2021-03-13] MEDS: INSULIN GLARGINE (*BKC) 100 UNITS/ML 50 UNITS SUB-Q (09:10)
[2021-03-13] MEDS: INSULIN ASPART (*BKC) 100 UNITS/ML SUB-Q (09:10)
[2021-03-13] MEDS: INSULIN ASPART (*BKC) 100 UNITS/ML 10 UNITS SUB-Q (09:10)
[2021-03-13] MEDS: bisoproloL fumarate 5 MG TABLET PO (09:12)
[2021-03-13] MEDS: ENOXAPARIN 40 MG/0.4 ML SYRINGE SUB-Q (09:12)
[2021-03-13] MEDS: FUROSEMIDE INJ 40 MG/4 ML VIAL IV PUSH ×2 (09:12→16:53)
[2021-03-13] MEDS: ATORVASTATIN 40 MG TABLET PO (09:13)
--- NOTE | 2021-03-13 09:51 | PCCARD ---
Attempted to do echocardiogram on [facility]. Patient was very restless and would not lay still. Images were very hard to obtain and was not able to get all views needed for a good quality study. Nurse. Salazar was in room and told water technician that physician would cancel test for today and reorder for tomorrow or when patient would be less restless and more cooperative and able to tolerate the procedure.
[2021-03-13 10:43] LABS: Alanine Aminotransferase 39 U/L (4-35); Albumin Level 3.7 g/dL (3.5-5.1); Alkaline Phosphatase 116 U/L (38-126); Anion Gap 12 mmol/L (8-16); Aspartate Amino Transferase 63 U/L (14-36); Bilirubin,Total 0.9 mg/dL (0.2-1.3); Blood Urea Nitrogen 28 mg/dL (7-17); CRP 1.6 mg/dL (<1.0); Calcium 8.8 mg/dL (8.4-10.2); Carbon Dioxide 27 mmol/L (22-30); Chloride 97 mmol/L (98-107); Estimated CRCL calculation 47 ml/min; Estimated Glomerular Filt Rate 54; Glucose 314 mg/dL (65-110); Magnesium 1.9 mg/dL (1.6-2.3); Potassium 3.3 mmol/L (3.4-5.0); Sodium 136 mmol/L (137-145)
[2021-03-13 11:42] LABS: Glucose Point of Care 149 mg/dl (65-105)
--- NOTE | 2021-03-13 12:40 | PM.IMPN ---
Progress Note: A&P Assessment and Plan (1) Pneumonia due to 2019 novel coronavirus: Code(s): U07.1 - COVID-19; J12.82 - Pneumonia due to coronavirus disease 2019 Status: Acute Assessment and Plan: Remdesivir and dexamethasone day 4 DC azithromycin, continue the azithromycin for 1 more days Tocilizumab 720mg 03/09 due to increased oxygen requirements 03/09 f/u CXR with moderate bilateral pneumonia CTA No PE, diffuse covid PNA Inflammatory markers still elevated Ferritin 750, LDH pending, CRP 1.6, Dimer 3.31 Continue to support with supplemental oxygen Wean oxygen to maintain saturation >92% Breathing treatments IS and Cornette therapy Repeat chest xray Diffuse lung disease with slight improvement, consistent with COVID 19 pneumonia ABG ordered and showed respiratory alkalosis Lasix x 4 doses ordered since BNP is elevated Echo reordered for tomorrow (2) Acute respiratory failure with hypoxia: Code(s): J96.01 - Acute respiratory failure with hypoxia Status: Acute Assessment and Plan: SPO2 continues to be labile Currently on 10LNC and 15LNRB Continue oxygen supplementation by nasal cannula and NRB Supplement Oxygen to keep saturation >92% Breathing treatments Trend SPO2 (3) Acute renal insufficiency: Code(s): N28.9 - Disorder of kidney and ureter, unspecified Status: Acute Assessment and Plan: Patient with no other prior values to compare Will continue to monitor Received IV fluids in emergency room BUN/Cr 26/04 Probably patient's baseline (4) T2DM (type 2 diabetes mellitus): Code(s): E11.9 - Type 2 diabetes mellitus without complications Status: Acute Assessment and Plan: Glucose 314 Carb consistent 1800 calorie diet Insulin sliding scale as needed Holding metformin and glimepiride Holding semaglutide Added basal Lantus 20 U q AM 03/09 with high-dose SSI and pre-meal TIW 03/11 increased Lantus to 40 U q AM Increase mealtime dose 10 units Looks like 24 hour insulin requirements is 71 Look like glucose is higher in the am (5) Gastroesophageal reflux: Code(s): K21.9 - Gastro-esophageal reflux disease without esophagitis Status: Acute Assessment and Plan: PPI (6) PLMD (periodic limb movement disorder): Code(s): G47.61 - Periodic limb movement disorder Status: Acute Assessment and Plan: controlled (7) Transaminitis: Code(s): R74.01 - Elevation of levels of liver transaminase levels Status: Acute Assessment and Plan: AST/ALT 63/39 Trend Hep panal Consider RUQ ultrasound (8) Acute metabolic encephalopathy: Code(s): G93.41 - Metabolic encephalopathy Status: Acute Assessment and Plan: Probably related to hypoxia and anxiety ABG performed Give one dose of ativan 0.25IV once Trend SPO2 Time Spent With Patient Time with patient: Greater than 35 minutes Subjective Date/time seen: 03/13/21 1240 Interval history: Date/Time: 03/08/21 19:54 Narrative: This is a 76-year-old female with past medical history significant for dyslipidemia, type 2 diabetes mellitus, hypertension. Patient presented to the emergency room due to extreme fatigue, shortness of breath, dry cough, body aches and pains, chills, poor appetite, loss of sense of taste and smell, patient has tested positive for COVID roughly 10 days ago she fares got tested at a facility urgent care and she also tested positive with a home kit, some on her relatives who live in the same house have also turned out positive for COVID. Patient was trying [id number] medication like ibuprofen but did not help noticed to be extremely fatigue and shortness of breath at minimal exertion and decided to come to the emergency room for further evaluation. In the emergency room patient was found to have a
--- NOTE | 2021-03-13 12:40 | P.PNIM_ITS ---
Progress Note: A&P Assessment and Plan (1) Pneumonia due to 2019 novel coronavirus: Code(s): U07.1 - COVID-19; J12.82 - Pneumonia due to coronavirus disease 2018 Status: Acute Assessment and Plan: * Remdesivir and dexamethasone day 4 * DC azithromycin, continue the azithromycin for 1 more days * Tocilizumab 720mg 03/09 due to increased oxygen requirements * 03/09 f/u CXR with moderate bilateral pneumonia * CTA No PE, diffuse covid PNA * Inflammatory markers still elevated Ferritin 750, LDH pending, CRP 1.6, Dimer 3.31 * Continue to support with supplemental oxygen * Wean oxygen to maintain saturation >92% * Breathing treatments * IS and Cornette therapy * Repeat chest xray Diffuse lung disease with slight improvement, consistent with COVID 19 pneumonia * ABG ordered and showed respiratory alkalosis * Lasix x 4 doses ordered since BNP is elevated * Echo reordered for tomorrow (2) Acute respiratory failure with hypoxia: Code(s): J96.01 - Acute respiratory failure with hypoxia Status: Acute Assessment and Plan: * SPO2 continues to be labile * Currently on 10LNC and 15LNRB * Continue oxygen supplementation by nasal cannula and NRB * Supplement Oxygen to keep saturation >92% * Breathing treatments * Trend SPO2 (3) Acute renal insufficiency: Code(s): N28.9 - Disorder of kidney and ureter, unspecified Status: Acute Assessment and Plan: * Patient with no other prior values to compare * Will continue to monitor * Received IV fluids in emergency room * BUN/Cr 28/1 * Probably patient's baseline (4) T2DM (type 2 diabetes mellitus): Code(s): E11.9 - Type 2 diabetes mellitus without complications Status: Acute Assessment and Plan: * Glucose 314 * Carb consistent 1800 calorie diet * Insulin sliding scale as needed * Holding metformin and glimepiride * Holding semaglutide * Added basal Lantus 20 U q AM 03/09 with high-dose SSI and pre-meal TIW * 03/11 increased Lantus to 40 U q AM * Increase mealtime dose 10 units * Looks like 24 hour insulin requirements is 71 * Look like glucose is higher in the am (5) Gastroesophageal reflux: Code(s): K21.9 - Gastro-esophageal reflux disease without esophagitis Status: Acute Assessment and Plan: * PPI (6) PLMD (periodic limb movement disorder): Code(s): G47.61 - Periodic limb movement disorder Status: Acute Assessment and Plan: * controlled (7) Transaminitis: Code(s): R74.01 - Elevation of levels of liver transaminase levels Status: Acute Assessment and Plan: * AST/ALT 63/39 * Trend * Hep panal * Consider RUQ ultrasound (8) Acute metabolic encephalopathy: Code(s): G93.41 - Metabolic encephalopathy Status: Acute Assessment and Plan: * Probably related to hypoxia and anxiety * ABG performed * Give one dose of ativan 0.25IV once * Trend SPO2 Time Spent With Patient Time with patient: Greater than 35 minutes Subjective Date/time seen: 03/13/21 1240 Interval history: Date/Time: 03/08/21 19:54 Narrative: This is a 76-year-old female with past medical history significant for dyslipidemia, type 2 diabetes mellitus, hypertension. Patient presented to the emergency room due to extreme fatigue, shortness of breath, dry co
[2021-03-13 13:43] LABS: Base Excess ABG -1.6 mEq/l (+/-2.0); Carboxyhemoglobin 0.3 % THb (0-2.0); Fractional Inspired Oxygen 100 %; HCO3 ABG 19.4 mEq/l (22.0-26.0); Methemoglobin ABG 0.2 %THb (0-1.5); Oxygen Content ABG 20.8 %vol (16.0-22.0); Oxygen Saturation ABG 92.1 % (95.0-100.0); Oxyhemoglobin 88.2 % THb (90.0-100.0); PCO2 ABG 25.3 mmHg (35.0-45.0); PO2 ABG 55.7 mmHg (80.0-100.0); PO2 FiO2 Ratio Arterial Blood 0.56 %; Reduced Hemoglobin 11.3 %THb (0-5.0); Total Hemoglobin 16.8 g/dL (12.0-18.0)
[2021-03-13 13:45] LABS: Site Drawn RIGHT BRACHIAL; pH ABG 7.503 (7.350-7.450)
[2021-03-13 13:46] LABS: Device HIGH FLOW NASAL CANN
[2021-03-13 14:12] LABS: Lactate Dehydrogenase 2535 U/L (313-618)
[2021-03-13] MEDS: LORazepam INJ (*CRX) 2 MG/ML VIAL 0.25 MG IV PUSH (14:30)
[2021-03-13 16:02] LABS: Glucose Point of Care 109 mg/dl (65-105)
[2021-03-13] MEDS: cefTRIAXone 2 GM in SODIUM CHLORIDE 0.9% IV 100 ML 200 ML IVPB (21:24)
[2021-03-13 22:49] LABS: Glucose Point of Care 139 mg/dl (65-105)
[2021-03-13] MEDS: HALOPERIDOL LACTATE 5 MG/ML VIAL 2.5 MG IM (23:38)
[2021-03-14] VITALS (20 sets, daily range): BP systolic 114–150; BP diastolic 62–87; PULSE 68–102; RESP 18–35; TEMP 36.1–37.1; O2SAT 92–100
--- NOTE | 2021-03-14 02:23 | ECG_ITS ---
Measurements Intervals [place] Rate: 92 P: 53 [place]: 143 QRS: -7 QRSD: 126 T: 64 QT: 369 QTc: 458 Interpretive Statements SINUS RHYTHM INTRAVENTRICULAR CONDUCTION DELAY BORDERLINE ST-T WAVE ABNORMALITY- LAT/HIGH LAT LEADS BASELINE ARTIFACT- I, II, III, AVR, AVL, AVF, V1-V6 BORDERLINE ECG Electronically Signed On 03-14-2021 10:54:15 RADIOGRAPHIC TECHNOLOGIST by Dipesh العراقي D.O.
[2021-03-14 02:51] LABS: Alveolar/Arterial O2 Gradient 501.7 mmHg; Base Excess ABG -2.1 mEq/l (+/-2.0); Fractional Inspired Oxygen 80 %; HCO3 ABG 17.9 mEq/l (22.0-26.0); Oxygen Content ABG 19.5 %vol (16.0-22.0); PO2 FiO2 Ratio Arterial Blood 0.57 %; Total Hemoglobin 16.9 g/dL (12.0-18.0)
[2021-03-14 02:55] LABS: Oxygen Saturation ABG 87.6 % (95.0-100.0); PCO2 ABG 21.9 mmHg (35.0-45.0); PO2 ABG 45.7 mmHg (80.0-100.0)
[2021-03-14 02:56] LABS: Device HIGH FLOW THERAPY; Modified Allen's Test Unable to perform; Oxyhemoglobin 82.4 % THb (90.0-100.0); Site Drawn RIGHT RADIAL
--- NOTE | 2021-03-14 02:58 | PCRCNOTE ---
pt placed on AIRVO, medium cannula, 50L/80% per DR toño
[2021-03-14] MEDS: FUROSEMIDE INJ 40 MG/4 ML VIAL IV PUSH (03:35)
[2021-03-14] MEDS: LORazepam INJ (*CRX) 2 MG/ML VIAL 0.5 MG IV PUSH ×4 (03:38→23:26)
[2021-03-14] MEDS: HALOPERIDOL LACTATE 5 MG/ML VIAL 2.5 MG IM ×2 (04:13→14:58)
[2021-03-14] MEDS: REMDESIVIR 100 MG/NS 250 ML 100 MG/250 ML BAG 250 MG IVPB ×2 (04:14→21:37)
[2021-03-14 04:27] LABS: Basophils Absolute Auto 0.1 K/mm3 (0.0-0.1); Basophils Percent Auto 0.2 % (0.2-1.2); Eosinophils Percent Auto 0.1 % (0-4.4); Hematocrit 45.7 % (37.0-47.0); Hemoglobin 16.6 g/dL (12.0-15.0); Immature Granulocyte Absolute 0.39 K/mm3 (0.00-0.031); Immature Granulocyte Percent A 1.4 % (0-0.5); Lymphocytes Absolute Auto 0.94 K/mm3 (0.9-3.2); Lymphocytes Percent Auto 3.3 % (18.3-44.2); Mean Corpuscular HGB Conc 36.3 g/dl (32-36); Mean Corpuscular Hemoglobin 30.2 pg (26-34); Mean Corpuscular Volume 83.2 fl (80-100); Mean Platelet Volume 11.2 fl (7.4-10.4); Monocytes Absolute Auto 0.8 K/mm3 (0.1-0.6); Monocytes Percent Auto 2.7 % (2.6-8.5); Neutrophils Absolute Auto 26.4 K/mm3 (1.3-6.7); Neutrophils Percent Auto 92.3 % (45.5-73.1); Platelet Count Result 179 k/mm3 (150-375); Red Blood Count 5.49 M/mm3 (4.2-5.4); Red Cell Distribution Width 12.9 % (11.5-14.5); White Blood Count 28.5 K/mm3 (4.5-10.0)
[2021-03-14 04:47] LABS: Alanine Aminotransferase 44 U/L (4-35); Albumin Level 3.9 g/dL (3.5-5.1); Alkaline Phosphatase 131 U/L (38-126); Anion Gap 16 mmol/L (8-16); Aspartate Amino Transferase 96 U/L (14-36); Bilirubin,Total 1.2 mg/dL (0.2-1.3); Blood Urea Nitrogen 45 mg/dL (7-17); CRP 1.3 mg/dL (<1.0); Calcium 9.3 mg/dL (8.4-10.2); Carbon Dioxide 23 mmol/L (22-30); Chloride 101 mmol/L (98-107); Estimated CRCL calculation 32 ml/min; Estimated Glomerular Filt Rate 34; Glucose 123 mg/dL (65-110); Magnesium 2.1 mg/dL (1.6-2.3); Potassium 3.1 mmol/L (3.4-5.0); Sodium 140 mmol/L (137-145)
[2021-03-14 05:10] LABS: D Dimer < 0.22 ug/mL (<0.48)
--- NOTE | 2021-03-14 05:24 | PM.EVENT ---
Event Note Event Note Event Note: Patient restless at night, hypoxic on 15L oxygen with NRM, haldol prn ordered. ekg obtained. CXR ordered. placed on airvo due to hypoxia, remained low. switched to BiPAP. large tidal volume on BIPAP /, CXR came back with pneumomediastinum. switched to CPAP witih pressure of 5 to lower TV as much as possible. morphien iv x 1 for pain. ativan 0.5 mg iv x 1 for anxiety. patient more comfortable on CPAP with improvement in oxygenation. extra dose of iv lasix 40 mg given as well. will order CT chest to evaluate her pneumomediastinum. unstable to get down for the scan. will reorder cxr for this morning repeat to monitor her pneumomediastinum. critical care time: 60 mins.
[2021-03-14 05:30] LABS: Hepatitis B Surface Antigen Negative (Negative)
[2021-03-14 05:33] LABS: Lactate Dehydrogenase 3427 U/L (313-618)
[2021-03-14 05:36] LABS: HAV RESULT Negative (Negative); Hepatitis B Core IgM Result Negative (Negative)
[2021-03-14] MEDS: MORPHINE SULFATE (*CRX) 2 MG/ML INJ IV PUSH (05:37)
--- NOTE | 2021-03-14 05:43 | PC.NURSE ---
patient transferred from [address] [place] [address] with increased o2 needs. patient is covid positive. patient is confused, extremely restless, alert to self barely.
[2021-03-14 05:48] LABS: Hepatitis C Virus Antibody Negative (Negative)
--- NOTE | 2021-03-14 08:15 | PM.IMPN ---
Progress Note: A&P Assessment and Plan (1) Pneumonia due to 2019 novel coronavirus: Code(s): U07.1 - COVID-19; J12.82 - Pneumonia due to coronavirus disease 2019 Status: Acute Assessment and Plan: Remdesivir and dexamethasone day 5 will continue for 5 more days DC azithromycin, continue the azithromycin for 1 more days Tocilizumab 720mg 03/09 due to increased oxygen requirements 03/09 f/u CXR with moderate bilateral pneumonia CTA No PE, diffuse covid PNA Inflammatory markers still elevated Ferritin 1370, LDH 3427, CRP 1.3, Dimer <0.22 Continue to support with supplemental oxygen placed on Bipap 03/06 Wean oxygen to maintain saturation >92% Breathing treatments IS and Cornette therapy Repeat chest xray Diffuse lung disease with slight improvement, consistent with COVID 19 pneumonia ABG after bipap placement is really within good levels Lasix on hold for now Echo cancelled for now (2) Acute respiratory failure with hypoxia: Code(s): J96.01 - Acute respiratory failure with hypoxia Status: Acute Assessment and Plan: SPO2 continues to be labile Currently on Bipap Supplement Oxygen to keep saturation >92% Breathing treatments Trend SPO2 (3) Acute renal insufficiency: Code(s): N28.9 - Disorder of kidney and ureter, unspecified Status: Acute Assessment and Plan: Patient with no other prior values to compare Will continue to monitor Received IV fluids in emergency room BUN/Cr 45/1.5 Probably patient's baseline (4) T2DM (type 2 diabetes mellitus): Code(s): E11.9 - Type 2 diabetes mellitus without complications Status: Acute Assessment and Plan: Glucose 123 Carb consistent 1800 calorie diet Insulin sliding scale as needed Holding metformin and glimepiride Holding semaglutide Added basal Lantus 20 U q AM 03/09 with high-dose SSI and pre-meal TIW On hold 03/11 increased Lantus to 40 U q AM On hold Increase mealtime dose 10 units On hold Looks like 24 hour insulin requirements is 71 Look like glucose is higher in the am (5) Gastroesophageal reflux: Code(s): K21.9 - Gastro-esophageal reflux disease without esophagitis Status: Acute Assessment and Plan: PPI (6) PLMD (periodic limb movement disorder): Code(s): G47.61 - Periodic limb movement disorder Status: Acute Assessment and Plan: controlled (7) Transaminitis: Code(s): R74.01 - Elevation of levels of liver transaminase levels Status: Acute Assessment and Plan: AST/ALT 96/44 Trend Hep panal negative Consider RUQ ultrasound (8) Acute metabolic encephalopathy: Code(s): G93.41 - Metabolic encephalopathy Status: Acute Assessment and Plan: Probably related to hypoxia and anxiety ABG performed better Ativan and haldol PRN Trend SPO2 (9) Pneumomediastinum: Code(s): J98.2 - Interstitial emphysema Status: Acute Assessment and Plan: Found on the CT From Covid Continue to monitor Time Spent With Patient Time with patient: Greater than 35 minutes Subjective Date/time seen: 03/14/21 0815 Interval history: Date/Time: 03/08/21 19:54 Narrative: This is a 76-year-old female with past medical history significant for dyslipidemia, type 2 diabetes mellitus, hypertension. Patient presented to the emergency room due to extreme fatigue, shortness of breath, dry cough, body aches and pains, chills, poor appetite, loss of sense of taste and smell, patient has tested positive for COVID roughly 10 days ago she fares got tested at a facility urgent care and she also tested positive with a home kit, some on her relatives who live in the same house have also turned out positive for COVID. Patient was trying [id number] medication like ibuprofen but did not help noticed to be e
--- NOTE | 2021-03-14 08:15 | P.PNIM_ITS ---
Progress Note: A&P Assessment and Plan (1) Pneumonia due to 2019 novel coronavirus: Code(s): U07.1 - COVID-19; J12.82 - Pneumonia due to coronavirus disease 2018 Status: Acute Assessment and Plan: * Remdesivir and dexamethasone day 5 will continue for 5 more days * DC azithromycin, continue the azithromycin for 1 more days * Tocilizumab 720mg 03/09 due to increased oxygen requirements * 03/09 f/u CXR with moderate bilateral pneumonia * CTA No PE, diffuse covid PNA * Inflammatory markers still elevated Ferritin 1370, LDH 3427, CRP 1.3, Dimer <0.22 * Continue to support with supplemental oxygen * placed on Bipap 03/06 * Wean oxygen to maintain saturation >92% * Breathing treatments * IS and Cornette therapy * Repeat chest xray Diffuse lung disease with slight improvement, consistent with COVID 19 pneumonia * ABG after bipap placement is really within good levels * Lasix on hold for now * Echo cancelled for now (2) Acute respiratory failure with hypoxia: Code(s): J96.01 - Acute respiratory failure with hypoxia Status: Acute Assessment and Plan: * SPO2 continues to be labile * Currently on Bipap * Supplement Oxygen to keep saturation >92% * Breathing treatments * Trend SPO2 (3) Acute renal insufficiency: Code(s): N28.9 - Disorder of kidney and ureter, unspecified Status: Acute Assessment and Plan: * Patient with no other prior values to compare * Will continue to monitor * Received IV fluids in emergency room * BUN/Cr 45/1.5 * Probably patient's baseline (4) T2DM (type 2 diabetes mellitus): Code(s): E11.9 - Type 2 diabetes mellitus without complications Status: Acute Assessment and Plan: * Glucose 123 * Carb consistent 1800 calorie diet * Insulin sliding scale as needed * Holding metformin and glimepiride * Holding semaglutide * Added basal Lantus 20 U q AM 03/09 with high-dose SSI and pre-meal TIW On hold * 03/11 increased Lantus to 40 U q AM On hold * Increase mealtime dose 10 units On hold * Looks like 24 hour insulin requirements is 71 * Look like glucose is higher in the am (5) Gastroesophageal reflux: Code(s): K21.9 - Gastro-esophageal reflux disease without esophagitis Status: Acute Assessment and Plan: * PPI (6) PLMD (periodic limb movement disorder): Code(s): G47.61 - Periodic limb movement disorder Status: Acute Assessment and Plan: * controlled (7) Transaminitis: Code(s): R74.01 - Elevation of levels of liver transaminase levels Status: Acute Assessment and Plan: * AST/ALT 96/44 * Trend * Hep panal negative * Consider RUQ ultrasound (8) Acute metabolic encephalopathy: Code(s): G93.41 - Metabolic encephalopathy Status: Acute Assessment and Plan: * Probably related to hypoxia and anxiety * ABG performed better * Ativan and haldol PRN * Trend SPO2 (9) Pneumomediastinum: Code(s): J98.2 - Interstitial emphysema Status: Acute Assessment and Plan: * Found on the CT * From Covid * Continue to monitor Time Spent With Patient Time with patient: Greater than 35 minutes Subjective Date/time seen: 03/14/21 0815 Interval history: Date/Time: 03/08/21 19:54
[2021-03-14] MEDS: ALBUTEROL SULFATE (*SP) INHALER 2 PUFF INHALATION ×2 (08:35→21:40)
[2021-03-14 09:11] LABS: INR 1.2; Prothrombin Time 15.4 Seconds (11.1-14.7)
[2021-03-14 09:16] LABS: Lactic Acid Reflex 2.8 mmol/L (0.7-2.1)
[2021-03-14] MEDS: KCL 20 MEQ/SW 100 ML 100 ML 50 MEQ IVPB ×2 (09:22→13:23)
[2021-03-14] MEDS: ENOXAPARIN 40 MG/0.4 ML SYRINGE SUB-Q (09:22)
[2021-03-14 09:46] LABS: Glucose Point of Care 128 mg/dl (65-105)
[2021-03-14 11:58] LABS: Reflex Lactic Acid Yes or No Add Lactic
--- NOTE | 2021-03-14 12:08 | PM.CNPUL ---
Assessment and Plan Assessment and plan (1) Pneumonia due to 2019 novel coronavirus: Code(s): U07.1 - COVID-19; J12.82 - Pneumonia due to coronavirus disease 2019 Status: Acute Assessment and Plan: 76-year-old female with a acute hypoxemic respiratory failure related to severe COVID 19 pneumonia. The recent chest imaging studies are showing worsening pneumomediastinum. The lungs appear to be inflated while the patient is on BiPAP support with borderline at O2 saturation. The patient will need to be transferred to the intensive care unit to monitor respiratory status given the worsening pneumomediastinum and the extensive bilateral infiltrates due to COVID-19 a pneumonia. The case was discussed with the hospitalist. I will continue with dexamethasone IV, remdesivir IV. Also consider adding Tocilizumab IV if she has not received it. I will hold Lasix at this point, continue with antibiotics DVT prophylaxis, and repeat arterial blood gases. (2) Acute respiratory failure with hypoxia: Code(s): J96.01 - Acute respiratory failure with hypoxia Status: Acute History of Present Illness History of Present Illness Consult date: 03/14/21 Chief complaint: Acute respiratory failure w/hypoxia, COVID-19, hyp Narrative: This 72-year-old female was admitted 6 days ago with fatigue and shortness of breath. patient has history of hyperlipidemia, type 2 diabetes mellitus hypertension.The patient was in her usual state of health Until approximately 10 days to this admission when she started having some a body aches and chills. She was tested positive with a home kit. Over the ensuing days, I the patient developed a dry cough and progressively increasing shortness of breath along with extreme fatigue. She was brought into the emergency room where she was found to have saturation of 88% on room air and was placed on supplemental oxygen initially. Initial chest CT showed diffuse infiltrates bilaterally consistent with COVID 19 pneumonia. There was no evidence of pulmonary embolism. The patient has been on dexamethasone remdesivir as well as antibiotics for possible infection. The patient was confused earlier today while she was receiving BiPAP with CPAP at 5 and a high Respiratory rate. Chest imaging studies over the last 2 days showed pneumomediastinum. The patient was placed on BiPAP support earlier today with improvement of oxygenation. A chest CT done within the last hour showed extensive pulmonary infiltrates bilaterally related to COVID-19 pneumonia as well as worsening pneumo mediastinum. Review of Systems Review of Systems: The patient has been having fatigue body aches, poor appetite shortness of breath and cough Unrelated to COVID-19 infection. Patient is currently confused while on BiPAP support unable to provide detailed information about her present illness. [facility] Past Medical History Medical History (Updated 03/13/21 @ 13:57 by MIGUEL LaughlinN-C) Common migraine Diabetes mellitus Gastroesophageal reflux Hypertension Polyarthralgia Restless leg syndrome Surgical History Surgical History History of back surgery History of hysterectomy History of knee surgery Hx of cholecystectomy Family History Family History Sibling Family history of sleep apnea Other FHx: migraine headaches Family history of Alzheimer's disease Heart disease Hypertension Social History Social History Smoking status: Never smoker Alcohol intake: never Substance use: never Substance use type: does not use Spiritual care concerns: No Meds Home Medications and Allergies Home Medications Medication Instructions Recorded Confirmed Type bisoprolol-hydrochlorothiazide 5 tablet PO DAILY 09/27/19 03/08/21 History e
[2021-03-14 12:24] LABS: Glucose Point of Care 149 mg/dl (65-105)
[2021-03-14 12:39] LABS: Lactic Acid 2.9 mmol/L (0.7-2.1)
[2021-03-14] MEDS: ERTAPENEM 1 GM/NS 50 ML 1 GM/50 ML BAG IVPB (13:28)
[2021-03-14 15:12] LABS: Alveolar/Arterial O2 Gradient 470.4 mmHg; Base Excess ABG -3.6 mEq/l (+/-2.0); Carboxyhemoglobin 0.3 % THb (0-2.0); Device NON-INVASIVE VENT; Fractional Inspired Oxygen 80 %; HCO3 ABG 18.9 mEq/l (22.0-26.0); Methemoglobin ABG 0.3 %THb (0-1.5); Modified Allen's Test Pass; Oxygen Content ABG 21.4 %vol (16.0-22.0); Oxygen Saturation ABG 94.9 % (95.0-100.0); Oxyhemoglobin 91.8 % THb (90.0-100.0); PCO2 ABG 28.6 mmHg (35.0-45.0); PO2 FiO2 Ratio Arterial Blood 0.88 %; Reduced Hemoglobin 7.6 %THb (0-5.0); Site Drawn LEFT RADIAL; Total Hemoglobin 16.6 g/dL (12.0-18.0); pH ABG 7.438 (7.350-7.450)
[2021-03-14 15:14] LABS: Non-Invasive Expiratory Pressure 8 CMH2O; Non-Invasive Inspiratory Pressure 12 CMH2O; Non-Invasive Vent Rate 12 /MIN
[2021-03-14 18:43] LABS: Glucose Point of Care 203 mg/dl (65-105)
[2021-03-14 21:42] LABS: Glucose Point of Care 212 mg/dl (65-105)
[2021-03-15] VITALS (16 sets, daily range): BP systolic 127–153; BP diastolic 52–102; PULSE 78–106; RESP 18–35; TEMP 35.8–36.1; O2SAT 67–99
[2021-03-15] MEDS: ALBUTEROL SULFATE (*SP) INHALER 2 PUFF INHALATION (02:45)
[2021-03-15] MEDS: HALOPERIDOL LACTATE 5 MG/ML VIAL 2.5 MG IM ×2 (03:10→12:13)
[2021-03-15 06:37] LABS: Basophils Percent Auto 0.2 % (0.2-1.2); Hematocrit 50.6 % (37.0-47.0); Immature Granulocyte Absolute 0.19 K/mm3 (0.00-0.031); Immature Granulocyte Percent A 1.1 % (0-0.5); Immature Platelet Fraction Pct 12.4 % (0.9-11.2); Lymphocytes Absolute Auto 0.72 K/mm3 (0.9-3.2); Lymphocytes Percent Auto 4.1 % (18.3-44.2); Mean Corpuscular HGB Conc 33.6 g/dl (32-36); Mean Corpuscular Hemoglobin 29.9 pg (26-34); Mean Corpuscular Volume 89.1 fl (80-100); Monocytes Absolute Auto 0.8 K/mm3 (0.1-0.6); Monocytes Percent Auto 4.4 % (2.6-8.5); Neutrophils Absolute Auto 15.9 K/mm3 (1.3-6.7); Neutrophils Percent Auto 90.2 % (45.5-73.1); Platelet Count Result 138 k/mm3 (150-375); Red Blood Count 5.68 M/mm3 (4.2-5.4); White Blood Count 17.6 K/mm3 (4.5-10.0)
[2021-03-15 06:51] LABS: Alanine Aminotransferase 66 U/L (4-35); Albumin Level 3.8 g/dL (3.5-5.1); Alkaline Phosphatase 132 U/L (38-126); Anion Gap 16 mmol/L (8-16); Aspartate Amino Transferase 175 U/L (14-36); Bilirubin,Total 1.2 mg/dL (0.2-1.3); Blood Urea Nitrogen 67 mg/dL (7-17); CRP 1.3 mg/dL (<1.0); Carbon Dioxide 20 mmol/L (22-30); Chloride 101 mmol/L (98-107); Estimated CRCL calculation 27 ml/min; Estimated Glomerular Filt Rate 28; Glucose 318 mg/dL (65-110); Magnesium 2.8 mg/dL (1.6-2.3); Potassium 3.8 mmol/L (3.4-5.0); Sodium 137 mmol/L (137-145)
[2021-03-15] MEDS: LORazepam INJ (*CRX) 2 MG/ML VIAL 0.5 MG IV PUSH ×2 (07:20→15:14)
[2021-03-15 07:25] LABS: Lactate Dehydrogenase 2623 U/L (313-618)
[2021-03-15 07:42] LABS: D Dimer 19.44 ug/mL (<0.48)
--- NOTE | 2021-03-15 07:45 | PM.IMPN ---
Progress Note: A&P Assessment and Plan (1) Pneumonia due to 2019 novel coronavirus: Code(s): U07.1 - COVID-19; J12.82 - Pneumonia due to coronavirus disease 2018 Status: Acute Assessment and Plan: Remdesivir and dexamethasone day 5 will continue for 5 more days, on hold for now since the renal function is not well enough DC azithromycin, continue the azithromycin for 1 more days Tocilizumab 720mg 03/09 due to increased oxygen requirements 03/09 f/u CXR with moderate bilateral pneumonia CTA No PE, diffuse covid PNA Inflammatory markers still elevated Ferritin 1370, LDH 3427, CRP 1.3, Dimer <0.22 Continue to support with supplemental oxygen placed on Bipap 03/06 Wean oxygen to maintain saturation >92% Breathing treatments IS and Cornette therapy Repeat chest xray Diffuse lung disease with slight improvement, consistent with COVID 19 pneumonia ABG after bipap placement is really within good levels Lasix on hold for now Echo cancelled for now (2) Acute respiratory failure with hypoxia: Code(s): J96.01 - Acute respiratory failure with hypoxia Status: Acute Assessment and Plan: SPO2 continues to be labile Currently on Bipap Supplement Oxygen to keep saturation >92% Breathing treatments Trend SPO2 (3) Acute renal insufficiency: Code(s): N28.9 - Disorder of kidney and ureter, unspecified Status: Acute Assessment and Plan: Patient with no other prior values to compare Will continue to monitor Received IV fluids in emergency room BUN/Cr 45/1.5 Probably patient's baseline (4) T2DM (type 2 diabetes mellitus): Code(s): E11.9 - Type 2 diabetes mellitus without complications Status: Acute Assessment and Plan: Glucose 123 Carb consistent 1800 calorie diet Insulin sliding scale as needed Holding metformin and glimepiride Holding semaglutide Added basal Lantus 20 U q AM 03/09 with high-dose SSI and pre-meal TIW On hold 03/11 increased Lantus to 40 U q AM On hold Increase mealtime dose 10 units On hold Looks like 24 hour insulin requirements is 71 Look like glucose is higher in the am (5) Gastroesophageal reflux: Code(s): K21.9 - Gastro-esophageal reflux disease without esophagitis Status: Acute Assessment and Plan: PPI (6) PLMD (periodic limb movement disorder): Code(s): G47.61 - Periodic limb movement disorder Status: Acute Assessment and Plan: controlled (7) Transaminitis: Code(s): R74.01 - Elevation of levels of liver transaminase levels Status: Acute Assessment and Plan: AST/ALT 96/44 Trend Hep panal negative Consider RUQ ultrasound (8) Acute metabolic encephalopathy: Code(s): G93.41 - Metabolic encephalopathy Status: Acute Assessment and Plan: Probably related to hypoxia and anxiety ABG performed better Ativan and haldol PRN Trend SPO2 (9) Pneumomediastinum: Code(s): J98.2 - Interstitial emphysema Status: Acute Assessment and Plan: Found on the CT From Covid Continue to monitor SUB Q emphysema in the face, eyes, chest, and arms Talked with pulmonary and self sealing fuel tank repairer all discourage intubation at this time (10) Comfort measures only status: Code(s): Z51.5 - Encounter for palliative care Status: Acute Assessment and Plan: Morphine and ativan ordered Family is coming Bipap will be removed Family will be here to be with the patient Morphine gtt ordered for the patient Time Spent With Patient Time with patient: Greater than 35 minutes Subjective Date/time seen: 03/15/21 0745 Interval history: Date/Time: 03/08/21 19:54 Narrative: This is a 76-year-old female with past medical history significant for dyslipidemia, type 2 diabetes mellitus, hypertension. Patient
--- NOTE | 2021-03-15 07:45 | P.PNIM_ITS ---
Progress Note: A&P Assessment and Plan (1) Pneumonia due to 2019 novel coronavirus: Code(s): U07.1 - COVID-19; J12.82 - Pneumonia due to coronavirus disease 2018 Status: Acute Assessment and Plan: * Remdesivir and dexamethasone day 5 will continue for 5 more days, on hold for now since the renal function is not well enough * DC azithromycin, continue the azithromycin for 1 more days * Tocilizumab 720mg 03/09 due to increased oxygen requirements * 03/09 f/u CXR with moderate bilateral pneumonia * CTA No PE, diffuse covid PNA * Inflammatory markers still elevated Ferritin 1370, LDH 3427, CRP 1.3, Dimer <0.22 * Continue to support with supplemental oxygen * placed on Bipap 03/06 * Wean oxygen to maintain saturation >92% * Breathing treatments * IS and Cornette therapy * Repeat chest xray Diffuse lung disease with slight improvement, consistent with COVID 19 pneumonia * ABG after bipap placement is really within good levels * Lasix on hold for now * Echo cancelled for now (2) Acute respiratory failure with hypoxia: Code(s): J96.01 - Acute respiratory failure with hypoxia Status: Acute Assessment and Plan: * SPO2 continues to be labile * Currently on Bipap * Supplement Oxygen to keep saturation >92% * Breathing treatments * Trend SPO2 (3) Acute renal insufficiency: Code(s): N28.9 - Disorder of kidney and ureter, unspecified Status: Acute Assessment and Plan: * Patient with no other prior values to compare * Will continue to monitor * Received IV fluids in emergency room * BUN/Cr 45/1.5 * Probably patient's baseline (4) T2DM (type 2 diabetes mellitus): Code(s): E11.9 - Type 2 diabetes mellitus without complications Status: Acute Assessment and Plan: * Glucose 123 * Carb consistent 1800 calorie diet * Insulin sliding scale as needed * Holding metformin and glimepiride * Holding semaglutide * Added basal Lantus 20 U q AM 03/09 with high-dose SSI and pre-meal TIW On hold * 03/11 increased Lantus to 40 U q AM On hold * Increase mealtime dose 10 units On hold * Looks like 24 hour insulin requirements is 71 * Look like glucose is higher in the am (5) Gastroesophageal reflux: Code(s): K21.9 - Gastro-esophageal reflux disease without esophagitis Status: Acute Assessment and Plan: * PPI (6) PLMD (periodic limb movement disorder): Code(s): G47.61 - Periodic limb movement disorder Status: Acute Assessment and Plan: * controlled (7) Transaminitis: Code(s): R74.01 - Elevation of levels of liver transaminase levels Status: Acute Assessment and Plan: * AST/ALT 96/44 * Trend * Hep panal negative * Consider RUQ ultrasound (8) Acute metabolic encephalopathy: Code(s): G93.41 - Metabolic encephalopathy Status: Acute Assessment and Plan: * Probably related to hypoxia and anxiety * ABG performed better * Ativan and haldol PRN * Trend SPO2 (9) Pneumomediastinum: Code(s): J98.2 - Interstitial emphysema Status: Acute Assessment and Plan: * Found on the CT * From Covid * Continue to monitor SUB Q emphysema in the face, eyes, chest, and arms Talked with pulmonary and meat puller all discourage intubation at this time
[2021-03-15 08:36] LABS: Large Platelets Present
[2021-03-15 08:39] LABS: Alveolar/Arterial O2 Gradient 341.7 mmHg; Base Excess ABG -7.5 mEq/l (+/-2.0); Fractional Inspired Oxygen 60 %; HCO3 ABG 14.8 mEq/l (22.0-26.0); Oxygen Content ABG 20.9 %vol (16.0-22.0); Oxygen Saturation ABG 91.6 % (95.0-100.0); PO2 ABG 59.7 mmHg (80.0-100.0); Total Hemoglobin 16.9 g/dL (12.0-18.0); pH ABG 7.407 (7.350-7.450)
[2021-03-15 08:40] LABS: Device NON-INVASIVE VENT; Modified Allen's Test Pass; Site Drawn RIGHT RADIAL
[2021-03-15 08:41] LABS: Non-Invasive Expiratory Pressure 8 CMH2O; Non-Invasive Inspiratory Pressure 12 CMH2O; Non-Invasive Vent Rate 12 /MIN
[2021-03-15] MEDS: MORPHINE SULFATE (*CRX) 2 MG/ML INJ IV PUSH (09:06)
[2021-03-15 09:39] LABS: INR 1.1; Prothrombin Time 14.3 Seconds (11.1-14.7)
--- NOTE | 2021-03-15 10:21 | PM.CNGS ---
Assessment and Plan Assessment and plan (1) Acute respiratory failure with hypoxia: Code(s): J96.01 - Acute respiratory failure with hypoxia Status: Acute Assessment and Plan: secondary to covid pneumonia, cont management per primary team and pulmonology (2) Pneumomediastinum: Code(s): J98.2 - Interstitial emphysema Status: Acute Assessment and Plan: no evidence of PTX on imaging, likely secondary to barotrauma, no acute surgical intervention indicated, will sign off, call c ?s, issues History of Present Illness Consult details Consult date: 03/15/21 Reason for consult: other (possible pneumothorax) Narrative: The pt is a 76 y/o F presenting to ED approximately 1 wk ago c worsening SOB secondary to covid pneumonia. Pt has developed worsening pneumomediastinum and subcutaneous air over last 2 days. Pt cont to require extensive respiratory support on BiPap. CT and CXR have been done and there was a question of possible bilateral pneumothorax. Surgery consulted for further evaluation and possible treatment. Pt somewhat confused and on BiPap so all information obtained via chart. Review of Systems Review of Systems: ROS unobtainable: Yes unobtainable due to medical condition and unobtainable due to mental status PMFSH Past Medical History Medical History Common migraine Diabetes mellitus Gastroesophageal reflux Hypertension Polyarthralgia Restless leg syndrome Surgical History Surgical History History of back surgery History of hysterectomy History of knee surgery Hx of cholecystectomy Family History Family History Sibling Family history of sleep apnea Other FHx: migraine headaches Family history of Alzheimer's disease Heart disease Hypertension Social History Social History Smoking status: Never smoker Alcohol intake: never Substance use: never Substance use type: does not use Spiritual care concerns: No Meds Home Medications and Allergies Home Medications Medication Instructions Recorded Confirmed Type bisoprolol-hydrochlorothiazide 5 tablet PO DAILY 09/27/19 03/08/21 History ergocalciferol (vitamin D2) 50,000 unit PO WEEKLY 09/27/19 03/08/21 History glimepiride 1 mg PO DAILY 09/27/19 03/08/21 History insulin syringe-needle U-100 [BD 09/27/19 03/09/21 History Insulin Syringe] semaglutide [Ozempic] 1 mg SUBCUT WEEKLY 09/27/19 03/08/21 History atorvastatin 40 mg PO DAILY 03/08/21 03/09/21 History metformin 1,000 mg PO DAILY 03/08/21 03/08/21 History Allergies Allergy/AdvReac Type Severity Reaction Status Date / Time Sulfa (Sulfonamide Allergy Unknown Hives / Verified 03/08/21 19:32 Antibiotics) Red Face Vital Signs Vital Signs - 24 hr 03/14/21 12:00 03/14/21 12:30 03/14/21 12:48 Temperature 37.1 C Pulse Rate 85 68 84 Respiratory Rate 18 Blood Pressure 150/87 H Pulse Oximetry 94 97 03/14/21 14:41 03/14/21 15:15 03/14/21 16:00 Temperature 36.2 C L Pulse Rate 82 88 84 Respiratory Rate 24 H 18 Blood Pressure 140/84 Pulse Oximetry 98 97 03/14/21 18:00 03/14/21 20:00 03/14/21 20:30 Temperature 36.1 C L Pulse Rate 83 85 92 Respiratory Rate 23 H 25 H Blood Pressure 114/62 Pulse Oximetry 100 95 03/14/21 22:00 03/15/21 00:00 03/15/21 02:00 Temperature 36.1 C L Pulse Rate 83 83 81 Respiratory Rate 28 H Blood Pressure 127/52 L Pulse Oximetry 91 03/15/21 02:02 03/15/21 04:00 03/15/21 06:00 Temperature 36.1 C L Pulse Rate 88 90 106 H Respiratory Rate 24 H 28 H Blood Pressure 130/78 Pulse Oximetry 93 91 03/15/21 08:35 Temperature Pulse Rate 92 Respiratory Rate 25 H Blood Pressure Pulse Oximetry 88 L Exam Const: General: acute distress moderate, c
[2021-03-15] MEDS: HEPARIN SODIUM 5,000 UNITS/ML VIAL 5500 UNITS IV PUSH (10:23)
[2021-03-15] MEDS: ERTAPENEM 1 GM/NS 50 ML 1 GM/50 ML BAG IVPB (10:24)
[2021-03-15] MEDS: HEPARIN SOD/D5W 100 UNITS/ML 25,000 UNITS/250 ML BAG 12 UNITS IV CONT (10:24)
[2021-03-15 12:04] LABS: Glucose Point of Care 340 mg/dl (65-105)
--- NOTE | 2021-03-15 12:04 | PCDIET ---
Nutrition follow up. Unable to visit with pt due to following covid precautions. Spoke with nursing who reports that pt is comfort care. No further nutritional interventions at this time.
[2021-03-15] MEDS: INSULIN ASPART (*BKC) 100 UNITS/ML SUB-Q (12:13)
[2021-03-15] MEDS: MORPHINE SULFATE (*CRX) 2 MG/ML INJ 1 MG IV PUSH ×2 (12:28→15:15)
--- NOTE | 2021-03-15 14:32 | PM.PNPUL ---
Progress Note: A&P Assessment and Plan (1) Pneumomediastinum: Code(s): J98.2 - Interstitial emphysema Status: Acute (2) Acute metabolic encephalopathy: Code(s): G93.41 - Metabolic encephalopathy Status: Acute (3) Acute respiratory failure with hypoxia: Code(s): J96.01 - Acute respiratory failure with hypoxia Status: Acute Assessment and Plan: worsening of respiratory status noted over the last 24 hours. Chest x-ray showing increasing bilateral lung infiltrates, worsening pneumomediastinum and subcutaneous emphysema. In addition there is evidence of a metabolic acidosis probably related to right leg ischemia. The patient was started on IV heparin for right lower extremity thrombus. She was evaluated by surgery regarding pneumomediastinum. case was discussed with hospitalist. Prognosis poor. Patient was made DNR after discussions with the family. Family may consider comfort measures only. (4) COVID-19: Code(s): U07.1 - COVID-19 Status: Acute Subjective Date/time seen: 03/15/21 14:32 Worsening of clinical status noted this a.m.. The patient was found obtunded, not answering verbal commands. She remained on BiPAP support receiving 100% oxygen. O2 saturation around 90%. Chest x-ray showed worsening infiltrates, pneumomediastinum bilaterally and also subcutaneous emphysema. she was started on IV heparin for right leg discoloration related to ischemic disease. The patient was made DNR. She is not a candidate for ICU transfer. Review of Systems Review of Systems: All systems reviewed & are unremarkable except as noted in HPI and below (H and P and below) Exam Narrative: GENERAL APPEARANCE: Well developed, well nourished, obtunded female in [id number] respiratory distress tachypneic while on BiPAP NECK: Supple. LUNGS: Auscultation of the lungs revealed crackles at bases posteriorly, no wheezing. There was evidence of subcutaneous emphysema in upper chest and neck. CARDIAC: There was a regular rate and rhythm without any murmurs, gallops, rubs. ABDOMEN: Soft with normal bowel sounds. LYMPH NODES: No lymphadenopathy was appreciated in the neck. EXTREMITIES: Right leg kick discoloration. NEUROLOGIC: obtunded, not answering verbal commands. moving all extremities. Objective Data Vital Signs Vital Signs: Vital Signs - 24 hr 03/14/21 14:41 03/14/21 15:15 03/14/21 16:00 Temperature 36.2 C L Pulse Rate 82 88 84 Respiratory Rate 24 H 18 Blood Pressure 140/84 Pulse Oximetry 98 97 03/14/21 18:00 03/14/21 20:00 03/14/21 20:30 Temperature 36.1 C L Pulse Rate 83 85 92 Respiratory Rate 23 H 25 H Blood Pressure 114/62 Pulse Oximetry 100 95 03/14/21 22:00 03/15/21 00:00 03/15/21 02:00 Temperature 36.1 C L Pulse Rate 83 83 81 Respiratory Rate 28 H Blood Pressure 127/52 L Pulse Oximetry 91 03/15/21 02:02 03/15/21 04:00 03/15/21 06:00 Temperature 36.1 C L Pulse Rate 88 90 106 H Respiratory Rate 24 H 28 H Blood Pressure 130/78 Pulse Oximetry 93 91 03/15/21 08:00 03/15/21 08:35 03/15/21 10:00 Temperature 35.8 C L Pulse Rate 90 92 92 Respiratory Rate 35 H 25 H Blood Pressure 153/102 H Pulse Oximetry 90 88 L 03/15/21 12:00 03/15/21 14:00 Temperature 35.8 C L Pulse Rate 101 H 86 Respiratory Rate 29 H Blood Pressure 133/90 Pulse Oximetry 91 Intake/Output Intake/Output: Intake & Output 03/12/21 03/13/21 03/14/21 03/15/21 23:59 23:59 23:59 23:59 Intake Total 164 825 5908 150 Output Total 1600 1400 700 325 Balance -900 -1050 300 -175 Meds/Results Medications: Active Medications Generic Name Dose Route Start Last Admin Trade Name Freq PRN Reason Stop Dose Admin Acetaminophen 650 mg 03/09/21 21:01 03/12/21 14:13 Acetaminophen 325 Mg Tablet PO 650 mg Q6H PRN Administration Mild Pain (1-3) or Fever Albuterol 2 puff 03/09/21 02:00 03/15/21 02:45 Albuterol Sulfa
[2021-03-15 16:47] LABS: Glucose Point of Care 310 mg/dl (65-105)
[2021-03-15] MEDS: HALOPERIDOL LACTATE 5 MG/ML VIAL IM (19:56)
[2021-03-15] MEDS: MORPHINE SULFATE INJ (*CRX) 50 MG in SODIUM CHLORIDE 0.9% IV 95 ML 8 MG IV CONT (19:57)
[2021-03-15 22:12] LABS: Glucose Point of Care 327 mg/dl (65-105)
[2021-03-16] VITALS (8 sets, daily range): BP systolic 77–150; BP diastolic 40–65; PULSE 86–103; RESP 5–26; TEMP 35.8–37.1; O2SAT 70–98
--- NOTE | 2021-03-16 04:06 | PC.NURSE ---
This patient, Sinai Baker, was transferred to room 328 on 03/16/21 at 0355. Personal belongings sent with patient. Report given to IRIS Neil. Appropriate documentation sent with patient.
--- NOTE | 2021-03-16 04:25 | ADMGEN ---
This patient, Sinai Baker, was admitted to [facility] Room 328-01. Patient/family oriented to hospital policies and general routines including ID bracelet, bed and alarms, visiting hours, pain management, procedures, bathroom and other care routines, personal items, smoking policy, room service/diet, and visiting hours. Information on how to activate the Rapid Response Team has been discussed. Patient/Family are encouraged to report perceived risks to care and to ask questions if they do not understand what they are told or what they should do.
[2021-03-16] MEDS: MORPHINE SULFATE INJ (*CRX) 50 MG in SODIUM CHLORIDE 0.9% IV 95 ML 8 MG IV CONT ×2 (08:38→23:11)
--- NOTE | 2021-03-16 09:45 | P.PNIM_ITS ---
Progress Note: A&P Assessment and Plan (1) Comfort measures only status: Code(s): Z51.5 - Encounter for palliative care Status: Acute Assessment and Plan: * Morphine and ativan ordered * Family is coming * Bipap will be removed * Family will be here to be with the patient * Morphine gtt ordered for the patient * Seems to be comfortable at this time (2) Pneumonia due to 2019 novel coronavirus: Code(s): U07.1 - COVID-19; J12.82 - Pneumonia due to coronavirus disease 2018 Status: Acute Assessment and Plan: * Remdesivir and dexamethasone day 5 will continue for 5 more days, on hold for now since the renal function is not well enough * DC azithromycin, continue the azithromycin for 1 more days * Tocilizumab 720mg 03/09 due to increased oxygen requirements * 03/09 f/u CXR with moderate bilateral pneumonia * CTA No PE, diffuse covid PNA * Inflammatory markers still elevated Ferritin 1370, LDH 3427, CRP 1.3, Dimer <0.22 * Continue to support with supplemental oxygen * placed on Bipap 03/06 * Wean oxygen to maintain saturation >92% * Breathing treatments * IS and Cornette therapy * Repeat chest xray Diffuse lung disease with slight improvement, consistent with COVID 19 pneumonia * ABG after bipap placement is really within good levels * Lasix on hold for now * Echo cancelled for now (3) Acute respiratory failure with hypoxia: Code(s): J96.01 - Acute respiratory failure with hypoxia Status: Acute Assessment and Plan: * SPO2 continues to be labile * Currently on Bipap * Supplement Oxygen to keep saturation >92% * Breathing treatments * Trend SPO2 (4) Acute renal insufficiency: Code(s): N28.9 - Disorder of kidney and ureter, unspecified Status: Acute Assessment and Plan: * Patient with no other prior values to compare * Will continue to monitor * Received IV fluids in emergency room * BUN/Cr 45/1.5 * Probably patient's baseline (5) T2DM (type 2 diabetes mellitus): Code(s): E11.9 - Type 2 diabetes mellitus without complications Status: Acute Assessment and Plan: * Glucose 123 * Carb consistent 1800 calorie diet * Insulin sliding scale as needed * Holding metformin and glimepiride * Holding semaglutide * Added basal Lantus 20 U q AM 03/09 with high-dose SSI and pre-meal TIW On hold * 03/11 increased Lantus to 40 U q AM On hold * Increase mealtime dose 10 units On hold * Looks like 24 hour insulin requirements is 71 * Look like glucose is higher in the am (6) Gastroesophageal reflux: Code(s): K21.9 - Gastro-esophageal reflux disease without esophagitis Status: Acute Assessment and Plan: * PPI (7) PLMD (periodic limb movement disorder): Code(s): G47.61 - Periodic limb movement disorder Status: Acute Assessment and Plan: * controlled (8) Transaminitis: Code(s): R74.01 - Elevation of levels of liver transaminase levels Status: Acute Assessment and Plan: * AST/ALT 96/44 * Trend * Hep panal negative * Consider RUQ ultrasound (9) Acute metabolic encephalopathy: Code(s): G93.41 - Metabolic encephalopathy Status: Acute Assessment and Plan: * Probably related to hypoxia and anxiety * ABG performed better * Ativan and h
--- NOTE | 2021-03-16 09:45 | PM.IMPN ---
Progress Note: A&P Assessment and Plan (1) Comfort measures only status: Code(s): Z51.5 - Encounter for palliative care Status: Acute Assessment and Plan: Morphine and ativan ordered Family is coming Bipap will be removed Family will be here to be with the patient Morphine gtt ordered for the patient Seems to be comfortable at this time (2) Pneumonia due to 2019 novel coronavirus: Code(s): U07.1 - COVID-19; J12.82 - Pneumonia due to coronavirus disease 2018 Status: Acute Assessment and Plan: Remdesivir and dexamethasone day 5 will continue for 5 more days, on hold for now since the renal function is not well enough DC azithromycin, continue the azithromycin for 1 more days Tocilizumab 720mg 03/09 due to increased oxygen requirements 03/09 f/u CXR with moderate bilateral pneumonia CTA No PE, diffuse covid PNA Inflammatory markers still elevated Ferritin 1370, LDH 3427, CRP 1.3, Dimer <0.22 Continue to support with supplemental oxygen placed on Bipap 03/06 Wean oxygen to maintain saturation >92% Breathing treatments IS and Cornette therapy Repeat chest xray Diffuse lung disease with slight improvement, consistent with COVID 19 pneumonia ABG after bipap placement is really within good levels Lasix on hold for now Echo cancelled for now (3) Acute respiratory failure with hypoxia: Code(s): J96.01 - Acute respiratory failure with hypoxia Status: Acute Assessment and Plan: SPO2 continues to be labile Currently on Bipap Supplement Oxygen to keep saturation >92% Breathing treatments Trend SPO2 (4) Acute renal insufficiency: Code(s): N28.9 - Disorder of kidney and ureter, unspecified Status: Acute Assessment and Plan: Patient with no other prior values to compare Will continue to monitor Received IV fluids in emergency room BUN/Cr 45/1.5 Probably patient's baseline (5) T2DM (type 2 diabetes mellitus): Code(s): E11.9 - Type 2 diabetes mellitus without complications Status: Acute Assessment and Plan: Glucose 123 Carb consistent 1800 calorie diet Insulin sliding scale as needed Holding metformin and glimepiride Holding semaglutide Added basal Lantus 20 U q AM 03/09 with high-dose SSI and pre-meal TIW On hold 03/11 increased Lantus to 40 U q AM On hold Increase mealtime dose 10 units On hold Looks like 24 hour insulin requirements is 71 Look like glucose is higher in the am (6) Gastroesophageal reflux: Code(s): K21.9 - Gastro-esophageal reflux disease without esophagitis Status: Acute Assessment and Plan: PPI (7) PLMD (periodic limb movement disorder): Code(s): G47.61 - Periodic limb movement disorder Status: Acute Assessment and Plan: controlled (8) Transaminitis: Code(s): R74.01 - Elevation of levels of liver transaminase levels Status: Acute Assessment and Plan: AST/ALT 96/44 Trend Hep panal negative Consider RUQ ultrasound (9) Acute metabolic encephalopathy: Code(s): G93.41 - Metabolic encephalopathy Status: Acute Assessment and Plan: Probably related to hypoxia and anxiety ABG performed better Ativan and haldol PRN Trend SPO2 (10) Pneumomediastinum: Code(s): J98.2 - Interstitial emphysema Status: Acute Assessment and Plan: Found on the CT From Covid Continue to monitor SUB Q emphysema in the face, eyes, chest, and arms Talked with pulmonary and machine welt butter all discourage intubation at this time Subjective Date/time seen: 03/16/21 0945 Interval history: Date/Time: 03/08/21 19:54 Narrative: This is a 76-year-old female with past medical history significant for dyslipidemia, type 2 diabetes mellitus, hypertension. Patient presented to the emergency ro
[2021-03-17 04:09] VITALS: BP 58/36; PULSE 94; RESP 6; TEMP 36.2; O2SAT 87
[2021-03-17 08:00] VITALS: BP 70/40; PULSE 88; RESP 18; TEMP 37.2; O2SAT 91
--- NOTE | 2021-03-17 09:45 | PM.IMPN ---
Progress Note: A&P Assessment and Plan (1) Comfort measures only status: Code(s): Z51.5 - Encounter for palliative care Status: Acute Assessment and Plan: Morphine and ativan ordered Family intermittently Oxygen off at this time Morphine gtt titrate to comfort of the patient Seems to have a very abnormal breathing pattern (2) Pneumonia due to 2019 novel coronavirus: Code(s): U07.1 - COVID-19; J12.82 - Pneumonia due to coronavirus disease 2018 Status: Acute Assessment and Plan: Not following Remdesivir and dexamethasone day 5 will continue for 5 more days, on hold for now since the renal function is not well enough DC azithromycin, continue the azithromycin for 1 more days Tocilizumab 720mg 03/09 due to increased oxygen requirements 03/09 f/u CXR with moderate bilateral pneumonia CTA No PE, diffuse covid PNA Inflammatory markers still elevated Ferritin 1370, LDH 3427, CRP 1.3, Dimer <0.22 Continue to support with supplemental oxygen placed on Bipap 03/06 Wean oxygen to maintain saturation >92% Breathing treatments IS and Cornette therapy Repeat chest xray Diffuse lung disease with slight improvement, consistent with COVID 19 pneumonia ABG after bipap placement is really within good levels Lasix on hold for now Echo cancelled for now (3) Acute respiratory failure with hypoxia: Code(s): J96.01 - Acute respiratory failure with hypoxia Status: Acute Assessment and Plan: Not following SPO2 continues to be labile Currently on Bipap Supplement Oxygen to keep saturation >92% Breathing treatments Trend SPO2 (4) Acute renal insufficiency: Code(s): N28.9 - Disorder of kidney and ureter, unspecified Status: Acute Assessment and Plan: Not following Patient with no other prior values to compare Will continue to monitor Received IV fluids in emergency room BUN/Cr 45/1.5 Probably patient's baseline (5) T2DM (type 2 diabetes mellitus): Code(s): E11.9 - Type 2 diabetes mellitus without complications Status: Acute Assessment and Plan: Not following Glucose 123 Carb consistent 1800 calorie diet Insulin sliding scale as needed Holding metformin and glimepiride Holding semaglutide Added basal Lantus 20 U q AM 03/09 with high-dose SSI and pre-meal TIW On hold 03/11 increased Lantus to 40 U q AM On hold Increase mealtime dose 10 units On hold Looks like 24 hour insulin requirements is 71 Look like glucose is higher in the am (6) Gastroesophageal reflux: Code(s): K21.9 - Gastro-esophageal reflux disease without esophagitis Status: Acute Assessment and Plan: PPI (7) PLMD (periodic limb movement disorder): Code(s): G47.61 - Periodic limb movement disorder Status: Acute Assessment and Plan: controlled (8) Transaminitis: Code(s): R74.01 - Elevation of levels of liver transaminase levels Status: Acute Assessment and Plan: AST/ALT 96/44 Trend Hep panal negative Consider RUQ ultrasound (9) Acute metabolic encephalopathy: Code(s): G93.41 - Metabolic encephalopathy Status: Acute Assessment and Plan: Probably related to hypoxia and anxiety ABG performed better Ativan and haldol PRN Trend SPO2 (10) Pneumomediastinum: Code(s): J98.2 - Interstitial emphysema Status: Acute Assessment and Plan: Found on the CT From [facility] Continue to monitor SUB Q emphysema in the face, eyes, chest, and arms Talked with pulmonary and school boat driver all discourage intubation at this time Subjective Date/time seen: 03/17/21 0945 Interval history: Date/Time: 03/08/21 19:54 Narrative: This is a 76-year-old female with past medical history significant for dyslipidemia, type 2 diabetes mellitus, hyperte
--- NOTE | 2021-03-17 09:45 | P.PNIM_ITS ---
Progress Note: A&P Assessment and Plan (1) Comfort measures only status: Code(s): Z51.5 - Encounter for palliative care Status: Acute Assessment and Plan: * Morphine and ativan ordered * Family intermittently * Oxygen off at this time * Morphine gtt titrate to comfort of the patient * Seems to have a very abnormal breathing pattern (2) Pneumonia due to 2019 novel coronavirus: Code(s): U07.1 - COVID-19; J12.82 - Pneumonia due to coronavirus disease 2018 Status: Acute Assessment and Plan: * Not following * Remdesivir and dexamethasone day 5 will continue for 5 more days, on hold for now since the renal function is not well enough * DC azithromycin, continue the azithromycin for 1 more days * Tocilizumab 720mg 03/09 due to increased oxygen requirements * 03/09 f/u CXR with moderate bilateral pneumonia * CTA No PE, diffuse covid PNA * Inflammatory markers still elevated Ferritin 1370, LDH 3427, CRP 1.3, Dimer <0.22 * Continue to support with supplemental oxygen * placed on Bipap 03/06 * Wean oxygen to maintain saturation >92% * Breathing treatments * IS and Cornette therapy * Repeat chest xray Diffuse lung disease with slight improvement, consistent with COVID 19 pneumonia * ABG after bipap placement is really within good levels * Lasix on hold for now * Echo cancelled for now (3) Acute respiratory failure with hypoxia: Code(s): J96.01 - Acute respiratory failure with hypoxia Status: Acute Assessment and Plan: * Not following * SPO2 continues to be labile * Currently on Bipap * Supplement Oxygen to keep saturation >92% * Breathing treatments * Trend SPO2 (4) Acute renal insufficiency: Code(s): N28.9 - Disorder of kidney and ureter, unspecified Status: Acute Assessment and Plan: * Not following * Patient with no other prior values to compare * Will continue to monitor * Received IV fluids in emergency room * BUN/Cr 45/1.5 * Probably patient's baseline (5) T2DM (type 2 diabetes mellitus): Code(s): E11.9 - Type 2 diabetes mellitus without complications Status: Acute Assessment and Plan: * Not following * Glucose 123 * Carb consistent 1800 calorie diet * Insulin sliding scale as needed * Holding metformin and glimepiride * Holding semaglutide * Added basal Lantus 20 U q AM 03/09 with high-dose SSI and pre-meal TIW On hold * 03/11 increased Lantus to 40 U q AM On hold * Increase mealtime dose 10 units On hold * Looks like 24 hour insulin requirements is 71 * Look like glucose is higher in the am (6) Gastroesophageal reflux: Code(s): K21.9 - Gastro-esophageal reflux disease without esophagitis Status: Acute Assessment and Plan: * PPI (7) PLMD (periodic limb movement disorder): Code(s): G47.61 - Periodic limb movement disorder Status: Acute Assessment and Plan: * controlled (8) Transaminitis: Code(s): R74.01 - Elevation of levels of liver transaminase levels Status: Acute Assessment and Plan: * AST/ALT 96/44 * Trend * Hep panal negative * Consider RUQ ultrasound (9) Acute metabolic encephalopathy: Code(s): G93.41 - Metabolic encephalopathy Status: Acute Assessment and Plan: * Probably related to hypoxia and
[2021-03-17] MEDS: MORPHINE SULFATE INJ (*CRX) 50 MG in SODIUM CHLORIDE 0.9% IV 95 ML 12 MG IV CONT (11:45)
--- NOTE | 2021-03-17 13:18 | P.DN_ITS ---
Discharge Summary Date and Time Date of : 03/17/21 Time of : 12:03 Provider Pronounced By: Dawna Harper RN and Mona Joshua RN Probable Cause of Probable Cause of : COVID-19 Summary Hospital Course: patient is 76-year-old female with past medical history of hyperlipidemia, diabetes mellitus, hypertension who presented to the ED with extreme fatigue, shortness of breath, dry cough, body aches, pain, chills loss of sight taste and smell who tested positive with a home kit 10 days ago for COVID-19. PCR was repeated here and tested positive as well. Patient was started on remdesivir and Decadron And was also given 1 dose of Actemra. Patient was also treated with supplemental oxygen. Patient's oxygen demand can continue to increase. Patient then was represent months throughout the night after 2 days of being on 15 L high-flow nasal cannula on 15 L non-rebreather. Patient was noted to have a much lower sat and needed BiPAP. Chest x-ray was done at that time and showed a pneumomediastinum. steroids or increased and BiPAP was maintained. Oxygen demand decreased while on BiPAP patient was able to maintain her saturation on 60-75%. Shortly after being placed on BiPAP patient's pneumomediastinum got bigger and she had subcutaneous emphysema up in her eyelids down both of her arms and to the abdomen and throughout most of the chest. It was also noted prior to patient's being placed on BiPAP patient was complaining of ankle pain. X-ray showed no abnormalities however due to the high clot burden of COVID-19 patient had an arterial occlusive clot in her right leg and her right leg and foot was ice cold from mid calf to her toes. Calf and foot toes all turned purple. Patient stable or suitable for transfer. Pulmonology was also consulted along with the change house attendant. It was determined patient would not benefit from intubation due to the very large pneu momediastinum. Which is also not treatable with test tubes. Inflammatory markers continued elevated throughout her course of COVID. Family was contacted and decided to make the patient comfort measures. Patient was taken off of BiPAP and placed on a morphine drip. Patient today at 12:03 p.m. comfortably surrounding her family. 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
== END 2021-03-17 12:03 | disposition expired | DRG 177 ==
LOC: ANHED 17:56 → ANH3MEDSUR 18:24 → ANHIMU 03-18 12:38
PROVIDERS: Internal Medicine; Internal Medicine Pulmonary Disease; Admitting Provider Family Medicine; Emergency Provider Emergency Medicine; PCP Internal Medicine; Visit Provider Nurse Practitioner
DX: U07.1 COVID-19 (principal); J96.01 Acute respiratory failure with hypoxia; J12.82 Pneumonia due to coronavirus disease 2019; G93.41 Metabolic encephalopathy; E87.2 Acidosis; Z51.5 Encounter for palliative care; Z66 Do not resuscitate; Z79.4 Long term (current) use of insulin; Z91.14 Patient's other noncompliance with medication regimen; Z88.2 Allergy status to sulfonamides; G43.009 Migraine without aura, not intractable, without status migrainosus; K21.9 Gastro-esophageal reflux disease without esophagitis; I10 Essential (primary) hypertension; M25.50 Pain in unspecified joint; G25.81 Restless legs syndrome; E11.65 Type 2 diabetes mellitus with hyperglycemia; E78.5 Hyperlipidemia, unspecified; N28.9 Disorder of kidney and ureter, unspecified; G47.61 Periodic limb movement disorder; R74.01 Elevation of levels of liver transaminase levels; F41.9 Anxiety disorder, unspecified; J98.2 Interstitial emphysema
CPT/HCPCS: 36415; 36600; 71045; 71250; 71275; 73610; 74176; 80053; 80074; 81001; 82375; 82565; 82728; 82805; 82948; 83050; 83605; 83615; 83735; 83880; 84460; 85025; 85027; 85055; 85380; 85610; 85730; 86140; 93005; 93923; 94002; 94003; 94640; 96361; 96374; 99291; A9270; G0378; J0456; J0696; J1100; J1335; J1630; J1644; J1650; J1815; J1940; J2060; J2270; J3480; J7030; J8540; Q0249; Q9967